=== PATIENT | male | born 1955 | race Caucasian/White ===

== ENCOUNTER 2021-06-23 10:31 | Inpatient (IN) ==
[2021-06-23] MEDS ORDERED: MoRPHine SULFATE 4 MG/ML 1 ML CARP\\VIAL IV STA ×2 (11:59→12:46)
--- NOTE | 2021-06-23 12:05 | Emergency Department Note ---
Impression & Plan Lumbar disc herniation with radiculopathy, Intractable low back pain ED Provider Note Provider: Julio C Beckford MD DATE OF SERVICE: 06/23/2021 CHIEF COMPLAINT: Back pain HISTORY OF PRESENT ILLNESS: Patient is a 66-year-old gentleman presenting today complaining of severe intractable back pain. Patient states has been using several tablets of oxycodone regularly for back pain over the past week without improvement. States the pain really started the beginning of May. Has a distant history 1980 of back surgery. Denies recent trauma or falls. Reports the pain has been worsening and is now experiencing numbness in his right leg. States he was seen for this initially at [facility] and had x-rays and MRIs. The MRI reportedly showed significant disc bulge posteriorly at L3 level. States has had a little bit of constipation but denies urinary issue. States he is still able to feel gross touch in his right leg. Pain radiates from the back down to the right leg and knee with some paresthesia here. States today he almost fell and the pain was so severe that he could not get around. His daughter states she had a little of the back to the car to bring him here. Stat es that he has follow-up with a back doctor initially scheduled for a couple weeks from now that had to be canceled and is in the process of being rescheduled. Patient states the pain is too severe for this. Patient states he is otherwise healthy and denies abdominal pain. Denies nausea or vomiting. Patient states he is on a baby aspirin. Patient denies any inguinal or saddle anesthesia. REVIEW OF SYSTEMS: A total of 10 review of systems was obtained and negative except as stated above in the HPI. PAST MEDICAL HISTORY: As noted above MEDICATIONS: Reviewed home medication list includes baby aspirin SOCIAL HISTORY: Recently retired, lives at home with PHYSICAL EXAM: GENERAL: alert and oriented laying on the stretcher appears mildly uncomfortable. Head: normocephalic and atraumatic EYES: No injection, discharge or icterus NECK: Trachea midline. ENT: Mucous membranes pink and moist. LUNGS: Airway patent. No retractions or tachypnea HEART: Regular rate and rhythm. ABDOMEN: Soft and non-tender, without guarding or rebound. BACK: No midline tenderness. No bilateral flank tenderness. SKIN: Acyanotic, warm, dry, without rashes EXTREMITIES: Without swelling, tenderness or deformity with 1+ right DP pulse. Pain worse with certain movements of the right hip and leg. NEUROLOGICAL: No aphasia. No facial droop or slurred speech. Normal strength and tone in the extremities. Feels gross touch in the right lower leg but some diminished sensation here. EK bpm sinus bradycardia. No PVC or PAC. No acute ST segment elevation depression. QTC 451. Left axis noted. CONTINUOUS CARDIAC MONITORING: was ordered and showed a heart rate of 50s to 60s bpm in normal sinus rhythm to sinus bradycardia PDMP was checked without noted issue. Patient's laboratory studies and imaging reviewed. Differential includes Musculoskeletal, disc herniation, fracture, metastatic d isease, cord compression, discitis, sciatica, cauda equina, infection, aortic disease, renal colic, gastrointestinal, as well as other pathologies. IMPRESSION/MEDICAL DECISION MAKING: Patient recent evaluation at [facility] prakash Guevara with MRI. Has images printed as well as disc of this. This was uploaded to our radiology. Evidence of some obvious disc bulging. Having sciatic symptoms with some numbness in the right leg consistent with lumbar radiculopathy. Appears to have good vascular flow in the right leg doubt ischemic limb. Doubt acute cauda equina given lack of significant urinary symptoms or true motor weakness. No significant trauma reported and basic x-rays obtained here. Doubt this is infectious in nature. Blood work is reassuring and I doubt another acute intra-abdominal process given his benign abdominal exam otherwise at this time. Treated with IV medications including morphine and dexamethasone with minimal improvement. Given his intractable pain patient likely require surgical intervention. Patient is almost fallen today and not a position at home and as such the hospitalist was consulted. Further orthopedic spine consultation can be pursued as an inpatient. DIAGNOSIS: Intractable back pain, lumbar disc herniation with radiculopathy DISPOSITION: Hospitalist will evaluate Patient was agreeable with this plan. 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: No Beliefs That Will Affect Care: None Current Living Situation: Spouse Other Information That Helps Us Care for You: No Feels Safe at Home: Yes Safety Concerns: Feels Safe At This Time Assistive Devices: Walker Allergies Allergies Allergy/AdvReac Type Severity Reaction Status Date / Time diphenhydramine AdvReac Irritable Unverified 06/23/21 13:39 [From Mike] Home Meds Home Medications Medication Instructions Recorded Confirmed aspirin 81 mg capsule 81 mg PO DAILY 06/23/21 06/23/21 multivitamin 1 tab PO DAILY 06/23/21 06/23/21 omeprazole 20 mg capsule,delayed 20 mg PO DAILY 06/23/21 06/23/21 release oxycodone-acetaminophen 5 mg-325 1 tab PO Q6H PRN 06/23/21 06/23/21 mg tablet Results & Data (ED) Vital Signs Vital Signs - 24 hr 06/23/21 10:54 06/23/21 12:20 Temperature 36.5 C Temperature Source Oral Pulse Rate 60 Pulse Rate [Right Finger] 64 Pulse Rhythm [Right Finger] Regular Pulse Strength [Right Finger] Normal Respiratory Rate 18 18 Respiratory Effort / Characteristics Non-Labored Spontaneous Respiratory Depth Normal Respiratory Pattern Regular Blood Pressure 154/80 H Blood Pressure [Right Arm] 150/82 H Blood Pressure Mean 104 Blood Pressure Mean [Right Arm] 104 Blood Pressure Position [Right Arm] Sitting Pulse Oximetry 97 94 Oxygen Delivery Method Room Air Room Air Sepsis Recent Fever Within 48 Hours No Sepsis New/Unexplained Change in Mental Status No Sepsis Action Taken by Nursing No Action Required Laboratory Data Result diagrams: 06/23/21 12:20 06/23/21 12:20 Lab Results 06/23/21 06/23/21 06/23/21 Range/Units 12:20 12:20 12:20 WBC 8.87 (4.8-10.8) K/uL RBC 5.14 (4.7-6.1) M/uL Hgb 16.4 (14.0-18.0) g/dL Hct 48.3 (42-52) % MCV 94.0 (80-100) fL MCH 31.9 (25-34) pg MCHC 34.0 (32-36) g/dL RDW Std Deviation 43.4 (36.4-46.3) fL RDW Coeff of Gerald 12.5 (11.5-14.5) % Plt Count 218 (130-400) K/uL MPV 9.1 (7.4-10.4) fL Immature Gran % (Auto) 0.3 % Neut % (Auto) 69.5 % Lymph % (Auto) 20.3 % Esmeralda % (Auto) 7.9 % Eos % (Auto) 1.5 % Baso % (Auto) 0.5 % Neut # (Auto) 6.17 (1.4-6.5) K/uL Lymph # (Auto) 1.80 (1.2-3.4) K/uL Esmeralda # (Auto) 0.70 H (0.11-0.59) K/uL Eos # (Auto) 0.13 (0-0.5) K/uL Baso # (Auto) 0.04 (0-0.2) K/uL Immature Gran # (Auto) 0.03 H (0.00-0.02) K/uL PT 10.7 (9.0-12.0) Seconds INR 1.1 (0.9-1.1) APTT 26.5 (21.0-31.0) Seconds PTT Ratio 1.0 Sodium 136 (136-145) mmol/L Potassium (3.5-5.1) mmol/L Chloride 105 (98-107) mmol/L Carbon Dioxide 27 (21-32) mmol/L Anion Gap 4.0 (3-11) BUN 22 H (7-18) mg/dl Creatinine 1.04 (0.6-1.4) mg/dl Est Cr Clr Drug Dosing 75.4 ml/min Est GFR ( Amer) 86.9 ml/min Est GFR (Non-Af Amer) 75.0 ml/min BUN/Creatinine Ratio 21.5 H (10-20) Glucose 121 H (70-99) mg/dl Calcium 8.8 (8.5-10.1) mg/dl COVID-19 Eval Order SARS-CoV-2 (PCR) (Negative) 06/23/21 06/23/21 Range/Units 12:20 12:20 WBC (4.8-10.8) K/uL RBC (4.7-6.1) M/uL Hgb (14.0-18.0) g/dL Hct (42-52) % MCV (80-100) fL MCH (25-34) pg MCHC (32-36) g/dL RDW Std Deviation (36.4-46.3) fL RDW Coeff of Gerald (11.5-14.5) % Plt Count (130-400) K/uL MPV (7.4-10.4) fL Immature Gran % (Auto) % Neut % (Auto) % Lymph % (Auto) % Esmeralda % (Auto) % Eos % (Auto) % Baso % (Auto) % Neut # (Auto) (1.4-6.5) K/uL Lymph # (Auto) (1.2-3.4) K/uL Esmeralda # (Auto) (0.11-0.59) K/uL Eos # (Auto) (0-0.5) K/uL Baso # (Auto) (0-0.2) K/uL Immature Gran # (Auto) (0.00-0.02) K/uL PT (9.0-12.0) Seconds INR (0.9-1.1) APTT (21.0-31.0) Seconds PTT Ratio Sodium (136-145) mmol/L Potassium (3.5-5.1) mmol/L Chloride (98-107) mmol/L Carbon Dioxide (21-32) mmol/L Anion Gap (3-11) BUN (7-18) mg/dl Creatinine (0.6-1.4) mg/dl Est Cr Clr Drug Dosing ml/min Est GFR ( Amer) ml/min Est GFR (Non-Af Amer) ml/min BUN/Creatinine Ratio (10-20) Glucose (70-99) mg/dl Calcium (8.5-10.1) mg/dl COVID-19 Eval Order Covid19 at [facility] SARS-CoV-2 (PCR) NEGATIVE (Negative) Administered Medications Acetaminophen (Acetaminophen 325 Mg Tab) 650 mg PO Q6H GIULIANA Stop: 07/23/21 17:59 Last Admin: 06/23/21 17:46 Dose: 650 mg Documented by: [id number] Discontinued Medications Dexamethasone (Dexamethasone Sod Inj 4 Mg/Ml Vial) Confirm Administered Dose 8 mg .ROUTE .STK-MED ONE Stop: 06/23/21 12:57 Last Admin: 06/23/21 12:58 Dose: 6 mg Documented by: [id number] Dexamethasone 6 mg/ Syringe 1.5 mls @ 1 mls/min IV ONE ONE Stop: 06/23/21 12:47 Last Admin: 06/23/21 12:59 Dose: Not Given Documented by: [id number] Morphine Sulfate (Morphine Sulfate 4 Mg/Ml 1 Ml Carp\Vial) 4 mg IV NOW STA Stop: 06/23/21 12:00 Last Admin: 06/23/21 12:16 Dose: 4 mg Documented by: [id number] Morphine Sulfate (Morphine Sulfate 4 Mg/Ml 1 Ml Carp\Vial) 4 mg IV NOW STA Stop: 06/23/21 12:47 Last Admin: 06/23/21 12:59 Dose: 4 mg Documented by: [id number] Imaging Data Radiologist's Impression: Chest X-Ray 06/23/21 11:59 SINGLE VIEW CHEST CLINICAL HISTORY: Low back pain. FINDINGS: An AP, portable, supine chest radiograph is obtained. No prior studies are available for comparison at the time of dictation. The examination is degraded by portable technique and apical lordotic positioning. The heart is top normal for projection. The pulmonary vasculature is noncongested. The lungs and pleural spaces are clear. No pneumothorax is seen. The bony thorax is grossly intact. IMPRESSION: No active disease in the chest. ACT 112: Negative or not required by law. Electronically signed by: Catarino Mckeon M.D. 06/23/2021 1:37 PM Lumbar Spine X-Ray 06/23/21 11:59 XR lumbar spine 2-3V HISTORY: 66 years-old Male pain . Acute low back pain without reported trauma COMPARISON: MRI lumbar spine 06/10/2021 TECHNIQUE: 3 views of the lumbar spine FINDINGS: Mild to moderate multilevel intervertebral disc space narrowing. Moderate L4-L5 disc space narrowing with vacuum disc phenomenon. Moderate spondylitic spurring and facet arthrosis. No acute fracture, subluxation or endplate erosion. Unremarkable soft tissues. IMPRESSION: 1. No acute fracture or subluxation. 2. Multilevel degenerative changes of the lumbar spine redemonstrated, better characterized on the recent lumbar spine MRI from 06/10/2021. ACT 112: Negative or not required by law. The above report was generated using voice recognition software. It may contain grammatical, syntax or spelling errors. Electronically signed by: Gabino Judge M.D. 06/23/2021 1:37 PM Discharge Plan Visit Data Chief Complaint: Back Injury/Pain Stated Complaint: BACK PAIN ED Provider: Julio C Beckford Discharge Problem: Lumbar disc herniation with radiculopathy, Intractable low back pain Patient Disposition: Admitted As Inpatient Discharge Instructions Interventions: ED Discharge Assessment Last Done: 06/23/21 16:13
[2021-06-23 12:36] LABS: Basophils # (auto) 0.04 K/uL (0-0.2); Basophils % (auto) 0.5 %; Eosinophils # (auto) 0.13 K/uL (0-0.5); Eosinophils % (auto) 1.5 %; Hematocrit (blood only) 48.3 % (42-52); Hemoglobin 16.4 g/dL (14.0-18.0); Immature Granulocytes # (auto) 0.03 K/uL (0.00-0.02); Immature Granulocytes % (auto) 0.3 %; Lymphocytes % (auto) 20.3 %; Mean Corpuscular Hemoglobin 31.9 pg (25-34); Mean Platelet Volume 9.1 fL (7.4-10.4); Monocytes % (auto) 7.9 %; Neutrophils # (auto) 6.17 K/uL (1.4-6.5); Neutrophils % (auto) 69.5 %; Platelet Count 218 K/uL (130-400); RDW Coefficient of Variation 12.5 % (11.5-14.5); RDW Standard Deviation 43.4 fL (36.4-46.3); Red Blood Count 5.14 M/uL (4.7-6.1); White Blood Count 8.87 K/uL (4.8-10.8)
[2021-06-23] MEDS ORDERED: dexAMETHasone 6 MG in SYRINGE 0 ML IV ONE (12:46)
[2021-06-23 12:50] LABS: INR 1.1 (0.9-1.1); Partial Thromboplastin Time 26.5 Seconds (21.0-31.0); Prothrombin Time 10.7 Seconds (9.0-12.0)
[2021-06-23] MEDS ORDERED: DEXAMETHASONE SOD INJ 4 MG/ML VIAL ONE (12:56)
[2021-06-23 13:06] LABS: BUN Creatinine Ratio 21.5 (10-20); Calcium 8.8 mg/dl (8.5-10.1); Creatinine Clr Calc Pharmacy 75.4 ml/min; Est GFR (African American) 86.9 ml/min
--- NOTE | 2021-06-23 13:38 | XRay Report ---
SINGLE VIEW CHEST CLINICAL HISTORY: Low back pain. FINDINGS: An AP, portable, supine chest radiograph is obtained. No prior studies are available for co mparison at the time of dictation. The examination is degraded by portable technique and apical lordo tic positioning. The heart is top normal for projection. The pulmonary vasculature is noncongested. T he lungs and pleural spaces are clear. No pneumothorax is seen. The bony thorax is grossly intact. IMPRESSION: No active disease in the chest. ACT 112: Negative or not required by law. Electronically signed by: Catarino Mckeon M.D. 06/23/2021 1:37 PM
--- NOTE | 2021-06-23 13:38 | XRay Report ---
XR lumbar spine 2-3V HISTORY: 66 years-old Male pain . Acute low back pain without reported trauma COMPARISON: MRI lumbar spine 06/10/2021 TECHNIQUE: 3 views of the lumbar spine FINDINGS: Mild to moderate multilevel intervertebral disc space narrowing. Moderate L4-L5 disc space narrowing with vacuum disc phenomenon. Moderate spondylitic spurring and facet arthrosis. No acute fracture, hoffmann bluxation or endplate erosion. Unremarkable soft tissues. IMPRESSION: 1. No acute fracture or subluxation. 2. Multilevel degenerative changes of the lumbar spine redemonstrated, better characterized on the re cent lumbar spine MRI from 06/10/2021. ACT 112: Negative or not required by law. The above report was generated using voice recognition software. It may contain grammatical, syntax o r spelling errors. Electronically signed by: Gabino Judge M.D. 06/23/2021 1:37 PM
--- NOTE | 2021-06-23 15:11 | Orthopedic Consultation ---
Date of Consultation June 23, 2021 Assessment & Plan (1) Lumbar disc herniation with radiculopathy: Assessment lumbar disc herniation L3-L4 with cephalad migration and radiculopathy. Plan lungs jessica with this patient and his daughter regarding his MRI findings and clinical presentation. This time he is marked clinical status progressive neuro deficit is in severe discomfort and recommending urgent lumbar decompression L3-L4. This may include possible fusion depending on the amount of facet required to adequately decompress the canal. This would however allow me to address the massive disc herniation and hopefully improve his pain and neuro deficit with time. Risk benefits pros cons alternatives were outlined in detail. Risk include but not limited to anesthesia blindness stroke paralysis nerve damage blood loss requiring transfusion infection requiring reoperation events with a marked improvement of his leg pain. At this time will make him n.p.o. after midnight and plan for surgery tomorrow. History of Present Illness Reason for Consultation: Back and right leg pain with weakness History of Present Illness This is a 66-year-old male has had a marked decline in status over the past several weeks. He states he began his lumbosacral back pain but is now begun rating into the right buttock anterior lateral thigh to the right knee. He is noted progressive quad deficit he is almost stumbling down steps. Pain does awaken him from sleep. Found extensive course of nonoperative care including medications. Allergies Allergy/AdvReac Type Severity Reaction Status Date / Time diphenhydramine AdvReac Irritable Unverified 06/23/21 13:39 [From [facility]] Home Medications Medication Instructions Recorded Confirmed Type aspirin 81 mg capsule 81 mg PO DAILY 06/23/21 06/23/21 History multivitamin 1 tab PO DAILY 06/23/21 06/23/21 History oxycodone-acetaminophen 5 mg-325 1 tab PO Q6H PRN 06/23/21 06/23/21 History mg tablet Patient History Social History (System 12/15/18 @ 13:52 by Bea Ferguson) Smoking Status: Never smoker Feels Safe at Home: Yes Physical Exam Physical Exam: On exam he is in obvious distress. He prefers to lie still in bed. He exhibits tension signs with straight leg raising on the right negative on the left. He has marked deficit sensation along the right anterior thigh compared to left. Is a plus out of 5 bilateral plantar flexion dorsiflexion extensor hallucis longus with a 3+/5 right quadriceps compared to 5 5 on the left. He has a negative logroll. No abnormal skin markings to the lumbar spine well-healed previous incision. Results & Data ([facility]) Vital Signs (Past 12 Hours) Vital Signs Temp Pulse Pulse Resp BP BP Pulse Ox 06/23/21 12:20 64 18 150/82 H 94 06/23/21 10:54 36.5 C 60 18 154/80 H 97
--- NOTE | 2021-06-23 16:23 | Anesthesiology Consultation ---
Date of Service June 23, 2021 Assessment & Plan (1) Encounter for pre-operative examination: Chart Review Chart Review: Acceptable Risk for Surgery and Patient NOT seen in Pre Admission Testing Consults Requested none History Surgery Operation Date: 06/24/21 11:55 Proposed Procedures p L3-L4 Decompression Possible Fusion - Romario Grier DO Height/Weight Height: 5 ft 11 in Weight: 84.8 kg Allergies Allergy/AdvReac Type Severity Reaction Status Date / Time diphenhydramine AdvReac Irritable Unverified 06/23/21 13:39 [From Benadryl] Medications Home Medications Medication Instructions Recorded Confirmed Last Taken aspirin 81 mg capsule 81 mg PO DAILY 06/23/21 06/23/21 Unknown multivitamin 1 tab PO DAILY 06/23/21 06/23/21 Unknown omeprazole 20 mg capsule,delayed 20 mg PO DAILY 06/23/21 06/23/21 Unknown release oxycodone-acetaminophen 5 mg-325 1 tab PO Q6H PRN 06/23/21 06/23/21 06/23/21 mg tablet Past Medical History Medical History Biceps tendon rupture s/p repair Renal calculi Past Surgical History Surgical History H/O inguinal hernia repair H/O umbilical hernia repair History of back surgery 1980s Social History Smoking Status: Never smoker Physical Exam Vital Signs Last Vital Signs Temp 36.5 C 06/23/21 10:54 Pulse 64 06/23/21 12:20 Resp 18 06/23/21 12:20 BP 150/82 H 06/23/21 12:20 Pulse Ox 94 06/23/21 12:20 Testing Laboratory Results 06/23/21 12:20 06/23/21 12:20 PT 10.7 Seconds (9.0-12.0) 06/23/21 12:20 INR 1.1 (0.9-1.1) 06/23/21 12:20 APTT 26.5 Seconds (21.0-31.0) 06/23/21 12:20 Electrocardiogram Date: 06/23/21 Findings: + SB @ (58) left axis deviation Chest X-Ray Date: 06/23/21 Findings: + NAD
[2021-06-23] MEDS ORDERED: oxyCODONE HCL IR 5 MG TAB (IMMEDIATE RELEASE) PO PRN (16:30)
[2021-06-23] MEDS ORDERED: MoRPHine SULFATE 4 MG/ML 1 ML CARP\\VIAL IV PRN (16:30)
[2021-06-23] MEDS: ACETAMINOPHEN 325 MG TAB PO SCH ×2 (17:46→23:23)
--- NOTE | 2021-06-23 18:44 | History & Physical Report ---
Date of Service June 23, 2021 Assessment & Plan (1) Lumbar disc herniation with radiculopathy: Plan: -[facility] -Patient presenting from home with reports of worsening and intractable low back pain with radiation into the right leg over the past few weeks. MRI at outside facility showed lumbar disc herniation L3-L4. -Spine Ortho consult, Dr. Grier planning on lumbar decompression tomorrow. -EKG and CXR unremarkable. Patient denies cardiopulmonary complaints. Patient describes a cardiac event approximately 25 years ago for which he had a cardiac cath that he reports was normal. Patient reports he was on Coumadin for 1 year. I reached out to patient's cardiology office however records or details of this event are not available. -Given patient's lack of cardiopulmonary symptoms and unremarkable EKG and CXR, patient will be considered an acceptable risk to proceed to surgery tomorrow. -Pain control with scheduled Tylenol and as needed oxycodone and morphine -Postop management as per Ortho (2) DVT prophylaxis: Plan: -SCDs due to planned procedure tomorrow Admission and Anticipated Discharge Date Admission Date: June 23, 2021 History of Present Illness Chief Complaint: Low back pain Primary Care Provider: Yoselyn De Paz MD 66-year-old male with PMH renal calculi, back surgery in the 1980s, hernia repair x3, and other problems listed below who presents to the ED for evaluation of intractable low back pain. Patient reports worsening low back pain over the past 3 weeks. Pain has now begun to radiate down the patient's right leg to the foot. He has had episodes where his right leg gives out from under him. He reports numbness and tingling to the right leg. He denies any bowel or bladder dysfunction. Patient has been treated as an outpatient with steroids and narcotics without any relief in symptoms. MRI obtained at outside facility demonstrated an L3 disc bulge. Patient denies fevers and chills. No chest pain or shortness of breath. Denies lightheadedness, dizziness, diaphoresis, syncopal events. Reports he has had a poor appetite however no abdominal pain, nausea, vomiting, diarrhea. No urinary symptoms. In the ED, patient is hemodynamically stable and labs are unremarkable. Patient received IV dexamethasone 6 mg IV, morphine 4 mg IV x 2 doses. Allergies Allergy/AdvReac Type Severity Reaction Status Date / Time diphenhydramine AdvReac Irritable Unverified 06/23/21 13:39 [From [facility]] Home Medications Medication Instructions Recorded Confirmed Type aspirin 81 mg capsule 81 mg PO DAILY 06/23/21 06/23/21 History multivitamin 1 tab PO DAILY 06/23/21 06/23/21 History omeprazole 20 mg capsule,delayed 20 mg PO DAILY 06/23/21 06/23/21 History release oxycodone-acetaminophen 5 mg-325 1 tab PO Q6H PRN 06/23/21 06/23/21 History mg tablet Past Med/Surg History Medical History Biceps tendon rupture s/p repair Renal calculi Surgical History H/O inguinal hernia repair H/O umbilical hernia repair History of back surgery 1980s Family History (Updated 06/23/21 @ 18:38 by SHANE Tolliver) Father Heart disease Social History (Updated 06/23/21 @ 18:38 by SHANE Tolliver) Smoking Status: Never smoker Hx Alcohol Use: No Hx Substance Use: No Preferred Language: Andorran Communication Ability: Effective Copy Machine Operator Required: No Beliefs That Will Affect Care: None Current Living Situation: Spouse Other Information That Helps Us Care for You: No Feels Safe at Home: Yes Safety Concerns: Feels Safe At This Time Assistive Devices: None Review of Systems Review of Systems: ROS per HPI, all other systems reviewed and negative Physical Exam Constitutional: WD/WN, vitals as above Eyes: PERRL, conjunctivae normal, anicteric sclerae ENMT: external ear and nose normal, oropharynx normal Respiratory: normal respiratory effort, lungs clear to auscultation Cardiovascular: Rate/Rhythm: regular rate and regular rhythm Vessels: normal peripheral pulses Extremities: no edema Gastrointestinal (Abdomen): normal bowel sounds, soft, nontender, no hepatosplenomegaly Musculoskeletal: no cyanosis or clubbing, extremities motor strength 5/5 Spine: + straight leg raise positive Decrease sensation RLE Skin: no rashes, warm and dry Neurologic: PERRL, EOMI, accommodation nl, no face palsy, no dysarthria Psychiatric: A+Ox3, euthymic affect Results & Data Results & Data ([place]) Vital Signs (Past 12 Hours) Vital Signs Temp Pulse Pulse Resp BP BP Pulse Ox 06/23/21 16:31 36.5 C 63 18 152/84 H 95 06/23/21 12:20 64 18 150/82 H 94 06/23/21 10:54 36.5 C 60 18 154/80 H 97 Laboratory Results Short CBC 06/23/21 Range/Units 12:20 WBC 8.87 (4.8-10.8) K/uL Hgb 16.4 (14.0-18.0) g/dL Hct 48.3 (42-52) % Plt Count 218 (130-400) K/uL BMP 06/23/21 12:20 Sodium 136 Potassium Chloride 105 Carbon Dioxide 27 BUN 22 H Creatinine 1.04 Glucose 121 H Calcium 8.8 Diagnostic Findings Chest X-Ray 06/23/21 11:59 SINGLE VIEW CHEST CLINICAL HISTORY: Low back pain. FINDINGS: An AP, portable, supine chest radiograph is obtained. No prior studies are available for comparison at the time of dictation. The examination is degraded by portable technique and apical lordotic positioning. The heart is top normal for projection. The pulmonary vasculature is noncongested. The lungs and pleural spaces are clear. No pneumothorax is seen. The bony thorax is grossly intact. IMPRESSION: No active disease in the chest. ACT 112: Negative or not required by law. Electronically signed by: Catarino Mckeon M.D. 06/23/2021 1:37 PM Lumbar Spine X-Ray 06/23/21 11:59 XR lumbar spine 2-3V HISTORY: 66 years-old Male pain . Acute low back pain without reported trauma COMPARISON: MRI lumbar spine 06/10/2021 TECHNIQUE: 3 views of the lumbar spine FINDINGS: Mild to moderate multilevel intervertebral disc space narrowing. Moderate L4-L5 disc space narrowing with vacuum disc phenomenon. Moderate spondylitic spurring and facet arthrosis. No acute fracture, subluxation or endplate erosion. Unremarkable soft tissues. IMPRESSION: 1. No acute fracture or subluxation. 2. Multilevel degenerative changes of the lumbar spine redemonstrated, better characterized on the recent lumbar spine MRI from 06/10/2021. ACT 112: Negative or not required by law. The above report was generated using voice recognition software. It may contain grammatical, syntax or spelling errors. Electronically signed by: Gabino Judge M.D. 06/23/2021 1:37 PM Code Status & VTE Plan VTE Prophylaxis Plan VTE Prophylaxis will be ordered: Yes Supervising Physician Co-Signing Physician Notes Patient seen and examined by me, care coordinated with SHANE Tolliver, please refer to her note above for further detail. Patient is currently lying in bed, in no acute distress. He is alert oriented answering questions appropriately. Lungs are clear to auscultation bilaterally without any wheezing, rhonchi or crackles. Heart sounds regular. Abdomen soft nontender nondistended. Patient is able to move extremities. No sensory loss noted. Denies any urinary or bowel incontinence. No fevers chills. Right lower extremity more difficult to move,/pain with movement. Patient was seen by orthopedic surgeon, plan for OR tomorrow for L3-L4 decompression/fusion. Patient is in agreement with the plan. Aisha Degroot MD
[2021-06-24] MEDS: ACETAMINOPHEN 325 MG TAB PO SCH ×4 (05:46→23:09)
--- NOTE | 2021-06-24 06:16 | Electrocardiogram Report ---
Test Reason : Blood Pressure : / mmHG Vent. Rate : 058 BPM Atrial Rate : 058 BPM P-R Int : 190 ms QRS Dur : 104 ms QT Int : 460 ms P-R-T Axes : 020 -35 036 degrees QTc Int : 451 ms Sinus bradycardia Left axis deviation Abnormal ECG No previous ECGs available Confirmed by Jimi Meza ([id number]) on 06/24/2021 6:16:05 AM Referred By: REFERRED SELF Confirmed By:Jimi Meza
[2021-06-24 06:21] LABS: Mean Corpuscular Hemoglobin 31.8 pg (25-34); Mean Corpuscular Volume 93.4 fL (80-100); Mean Platelet Volume 9.2 fL (7.4-10.4); Platelet Count 229 K/uL (130-400); RDW Coefficient of Variation 12.4 % (11.5-14.5); RDW Standard Deviation 42.1 fL (36.4-46.3); Red Blood Count 5.03 M/uL (4.7-6.1); White Blood Count 13.88 K/uL (4.8-10.8)
[2021-06-24 07:05] LABS: BUN Creatinine Ratio 24.4 (10-20); Calcium 8.9 mg/dl (8.5-10.1); Creatinine Clr Calc Pharmacy 70.4 ml/min; Est GFR (Non-African American) 71.6 ml/min; Potassium 4.1 mmol/L (3.5-5.1)
[2021-06-24] MEDS: PANTOprazole 40 MG TAB PO SCH (07:32)
--- NOTE | 2021-06-24 07:35 | History & Physical Bridge Note ---
Date of Service June 24, 2021 History & Physical Bridge Note I have examined the patient, reviewed the History & Physical and in the interval since the performance of the History & Physical I have noted the following changes of clinical significance: no changes noted Patient continues to demonstrate significant lumbar radiculopathy affecting the right lower extremity with progressive weakness to the right quadriceps. I am recommending emergent decompression L3-L4 to avoid permanent neurologic deficit.
[2021-06-24] MEDS ORDERED: ePHEDrine sulfate 50 MG/ML AMP IV PRN (11:23)
[2021-06-24] MEDS ORDERED: HYDROmorphone INJ 1 MG/ML SYRINGE IV PRN ×2 (11:23→15:47)
[2021-06-24] MEDS ORDERED: ONDANSETRON INJ 2 MG/ML 2 ML VIAL IV PRN ×2 (11:23→15:47)
[2021-06-24] MEDS ORDERED: ATROPINE SULFATE 0.1 MG/ML 10ML SYR IV PRN (11:23)
[2021-06-24] MEDS ORDERED: HYDROmorphone INJ 2 MG/ML SYR/VIAL ONE (11:33)
[2021-06-24] MEDS ORDERED: MIDAZOLAM HCL 1 MG/ML 2ML VIAL ONE (11:33)
[2021-06-24] MEDS ORDERED: ceFAZolin 2000MG 2,000 MG/15 ML SYR IV ONE (12:00)
[2021-06-24] MEDS ORDERED: EPINEPHrine INJ 1 MG/ML AMP ONE (12:17)
[2021-06-24] MEDS ORDERED: BUPIVACAINE 0.5 % 5 MG/1 ML MPF 30ML VIAL ONE (12:17)
[2021-06-24] MEDS ORDERED: SUGAMMADEX SODIUM 200 MG/2 ML VIAL IV ONE (12:24)
[2021-06-24] MEDS ORDERED: LIDOCAINE 2% 2 ML VIAL/AMP(20MG/ML) INFIL ONE (13:04)
[2021-06-24] MEDS ORDERED: ONDANSETRON INJ 2 MG/ML 2 ML VIAL ONE (13:04)
[2021-06-24] MEDS ORDERED: DEXAMETHASONE SOD INJ 4 MG/ML VIAL ONE (13:04)
[2021-06-24] MEDS ORDERED: ROCURONIUM BROMIDE 10 MG/ML 5 ML VIAL IV ONE (13:04)
[2021-06-24] MEDS ORDERED: PROPOFOL IV EMULSION 10 MG/ML 20 ML VIAL IV ONE (13:04)
[2021-06-24] MEDS ORDERED: FLOSEAL HEMOSTATIC MATRIX 10ML TOP ONE (13:09)
--- NOTE | 2021-06-24 13:54 | Operative Report ---
Post Operative Report Pre & Post Diagnosis Operation Date: 06/24/21 11:55 Pre-Op Diagnosis: Lumbar disc herniation with radiculopathy Post-Op Diagnosis: Lumbar disc herniation with radiculopathy I identified the patient and participated in the time-out.: Yes Procedure Operation Date: 06/24/21 11:55 Actual Procedures Lumbar decompression L3-4 L4-5 with medial facetectomies and removal of herniated free fragments. Surgeon Romario Grier, [employer] Artistic Director Rashawn Holm Estimated Blood Loss 75 Findings Consistent with Post-Op Diagnosis Specimens None Indications This is a 66-year-old male who presents with severe radiculopathy and leg weakness and is here for urgent decompression and removal of herniated fragment. Description of Procedure Patient was met with identified informed consent obtained. Patient was then taken to the operative suite underwent intubation placed in a prone position the Krystian table top Guilherme frame. All bony prominences well-padded eyes inspected to ensure no external pressure placed upon the. This point the lumbar spine was prepped and draped in a sterile fashion. Sharp dissection with the assistance of Bovie cartilage from down to and exposing the interlaminar space at L3-L4 L4- L5. Then performed a partial laminectomy of L4 and L3 to adequately decompress the canal and safely retrieve the mass amounts of disc material that migrated along the right side of the canal began at L3-L4 and migrating cephalad. After removal fragments the incision was copiously irrigated 10 round KARIN drain inserted. Was then closed with 1 Vicryl fascia 2-0 Vicryl subcutaneously and 4 Monocryl for final skin closure. Steri-Strip sterile dressing placed. Patient continued back in stable condition. Please note Rashawn Holm was present at the entire procedure and while the patient positioning complex portions of the surgery and fascial closure. I attest to the content of the Intraoperative Record and any orders documented therein. Any exceptions are noted below.
--- NOTE | 2021-06-24 14:36 | Fluoroscopy Report ---
FL spine 1V any level CLINICAL HISTORY: L3-4 LAMINECTOMY TECHNIQUE: 1 views were obtained with the C-arm in the OR with the above procedure. Total fluoroscopy time was 9.9 seconds. Total skin dose was 4.74 mGy. Comparison: None available at the time of this dictation. FINDINGS/IMPRESSION: Single intraoperative image was obtained of L3-L4 laminectomy. Please correlate with intraoperative fluoroscopy and operative report. ACT 112: Negative or not required by law. Electronically signed by: Ricky Chester M.D. 06/24/2021 2:35 PM
[2021-06-24] MEDS: fentaNYL citrate 100 MCG/2 ML VIAL IV PRN ×4 (14:47→15:02)
--- NOTE | 2021-06-24 15:02 | Anesthesiology Progress Note ---
Date of Service June 24, 2021 Anesthesia Post Procedure Vital Signs Vital Signs: Temp Pulse Pulse Resp BP Pulse Ox 06/24/21 14:50 73 11 L 133/80 94 06/24/21 14:40 76 15 152/84 H 96 06/24/21 14:30 77 7 L 153/92 H 98 06/24/21 14:20 75 11 L 154/82 H 98 06/24/21 14:14 36.2 C L 72 12 169/89 H 98 06/24/21 11:41 36.7 C 60 17 155/73 H 93 06/24/21 06:59 36.6 C 68 18 151/77 H 96 06/23/21 22:17 36.7 C 75 16 127/70 91 06/23/21 16:31 36.5 C 63 18 152/84 H 95 Pain Intensity Bilateral Lower Back: Pain Intensity: 6 Transfer of Care Handoff Completed per policy Notes Mental Status: alert / awake / arousable and participated in evaluation Patient Amnestic to Procedure: Yes Nausea / Vomiting: adequately controlled Pain: adequately controlled Airway Patency, RR, SpO2: stable & adequate BP & HR: stable & adequate Hydration State: stable & adequate Anesthetic Complications: no major complications apparent and Pt Satisfied with anesthetic care
[2021-06-24] MEDS ORDERED: oxyCODONE HCL IR 5 MG TAB (IMMEDIATE RELEASE) PO PRN (15:47)
[2021-06-24] MEDS ORDERED: LORazepam 0.5 MG/1 ML VIAL IV PRN (15:47)
[2021-06-24] MEDS ORDERED: NALOXONE HCL 0.4 MG/1 ML VIAL/CARP IV PRN (15:47)
[2021-06-24] MEDS ORDERED: traMADol HCL 50 MG TABLET PO PRN (15:47)
[2021-06-24] MEDS ORDERED: LACTATED RINGER'S 1,000 ML IV SCH (15:47)
[2021-06-24] MEDS ORDERED: ALUMINUM/MAGNESIUM SUSP 30 ML UDC PO PRN (15:47)
[2021-06-24] MEDS ORDERED: HYDROmorphone INJ 0.5 MG/0.5 ML SYR IV PRN (15:47)
[2021-06-24] MEDS ORDERED: PROMETHAZINE HCL 12.5 MG in SODIUM CHLORIDE 0.9% 50 ML IV PRN (15:47)
[2021-06-24] MEDS ORDERED: bisacodyL 10 MG SUPP PR PRN (15:47)
[2021-06-24] MEDS ORDERED: DO NOT ADMINISTER PNEUMOCOCCAL VACCINE PRN (15:47)
[2021-06-24] MEDS ORDERED: SOD PHOSPHATE/SOD BIPHOSPHATE ENEMA 132 ML BTL PR PRN (15:47)
[2021-06-24] MEDS ORDERED: METOCLOPRAMIDE HCL INJ 5 MG/ML 2 ML VIAL IV PRN (15:47)
[2021-06-24] MEDS ORDERED: hydrOXYzine HCl 25 MG TAB PO PRN (15:47)
[2021-06-24] MEDS ORDERED: MAGNESIUM HYDROXIDE SUSP 30 ML UDC PO PRN (15:47)
[2021-06-24] MEDS ORDERED: FAMOTIDINE 20 MG TAB PO PRN (15:47)
[2021-06-24] MEDS ORDERED: ACETAMINOPHEN 500 MG TAB PO PRN (15:47)
[2021-06-24] MEDS ORDERED: DO NOT ADMINISTER FLU VACCINE PRN (15:47)
[2021-06-24] MEDS ORDERED: diphenhydrAMINE Capsule 25 MG CAP PO PRN (15:47)
[2021-06-24] MEDS ORDERED: LORazepam 0.5 MG TAB PO PRN (15:47)
[2021-06-24] MEDS ORDERED: ACETAMINOPHEN 1,000 MG/100 ML VIAL IV PRN (15:47)
[2021-06-24] MEDS ORDERED: ONDANSETRON 4 MG OD TAB PO PRN (15:47)
--- NOTE | 2021-06-24 17:56 | Hospitalist Progress Note ---
Date of Service June 24, 2021 Assessment & Plan (1) Lumbar disc herniation with radiculopathy: Plan: -Admitted to [facility] -Patient presenting from home with reports of worsening and intractable low back pain with radiation into the right leg over the past few weeks. MRI at outside facility showed lumbar disc herniation L3-L4. -Spine Ortho consult, Dr. Grier - now pt is s/p lumbar decompression (06/24/2021) - pt tolerated procedure well pre-op eval -EKG and CXR unremarkable. Patient denies cardiopulmonary complaints. Patient describes a cardiac event approximately 25 years ago for which he had a cardiac cath that he reports was normal. Patient reports he was on Coumadin for 1 year. I reached out to patient's cardiology office however records or details of this event are not available. -Given patient's lack of cardiopulmonary symptoms and unremarkable EKG and CXR, patient considered an acceptable risk to proceed to surgery -Pain control with scheduled Tylenol and as needed oxycodone and morphine -Postop management as per Ortho (2) DVT prophylaxis: Plan: -SCDs / per ortho Admission and Anticipated Discharge Date Admission Date: June 24, 2021 Subjective Patient seen in follow-up of back pain secondary to lumbar disc herniation Currently status post decompression, fusion L3-L4 Patient is currently lying in bed in no acute distress He is awake alert oriented, answering questions appropriately, patient's is at the bedside Denies any chest pain, shortness of breath, abdominal pain, nausea or vomiting He is able to move extremities, and denies any sensory loss currently Review of Systems Review of Systems: All systems reviewed & are unremarkable except as noted in Subjective Physical Exam Physical Exam: Constitutional:L WD/WN, M in NAD Eyes: PERRL, EOMI, conju nctivae normal, an icteric sclerae ENMT: external ear and n ose normal, oropha rynx normal Respiratory: normal respiratory effort, lungs meri ar to auscultation Cardiovascular:L Rate/Rhythm: regul ar rate and regula r rhythm Vessels: normal peripheral pulses Extremiti es: no edema Gastrointestinal ( Abdomen): normal bowel sound s, soft, nontender Musculoskeletal: moves extremities, no significant se nsory deficits not ed Skin: no rashes, warm an d dry Neurologic: PERRL, EOMI, no fa ce palsy, no dysar thria, moves extre mities Psychiatric: A+Ox3, euthymic af fect Results & Data Results & Data ([facility]) Vital Signs (Past 12 Hours) Vital Signs Temp Pulse Pulse Resp BP Pulse Ox 06/24/21 17:43 62 18 149/88 H 95 06/24/21 16:49 68 18 119/74 95 06/24/21 16:25 67 18 128/73 94 06/24/21 15:50 36.8 C 78 18 128/75 92 06/24/21 15:30 36.6 C 72 10 L 110/78 94 06/24/21 15:20 36.6 C 71 10 L 134/75 95 06/24/21 15:10 36.6 C 76 14 138/81 95 06/24/21 15:00 36.6 C 73 13 127/82 96 06/24/21 14:50 73 11 L 133/80 94 06/24/21 14:40 76 15 152/84 H 96 06/24/21 14:30 77 7 L 153/92 H 98 06/24/21 14:20 75 11 L 154/82 H 98 06/24/21 14:14 36.2 C L 72 12 169/89 H 98 06/24/21 11:41 36.7 C 60 17 155/73 H 93 06/24/21 06:59 36.6 C 68 18 151/77 H 96 Laboratory Results 06/24/21 06/24/21 Range/Units 05:41 05:41 WBC 13.88 H (4.8-10.8) K/uL RBC 5.03 (4.7-6.1) M/uL Hgb 16.0 (14.0-18.0) g/dL Hct 47.0 (42-52) % MCV 93.4 (80-100) fL MCH 31.8 (25-34) pg MCHC 34.0 (32-36) g/dL RDW Std Deviation 42.1 (36.4-46.3) fL RDW Coeff of Gerald 12.4 (11.5-14.5) % Plt Count 229 (130-400) K/uL MPV 9.2 (7.4-10.4) fL Sodium 137 (136-145) mmol/L Potassium 4.1 (3.5-5.1) mmol/L Chloride 104 (98-107) mmol/L Carbon Dioxide 25 (21-32) mmol/L Anion Gap 8.0 (3-11) BUN 26 H (7-18) mg/dl Creatinine 1.08 (0.6-1.4) mg/dl Est Cr Clr Drug Dosing 70.4 ml/min Est GFR ( Amer) 83.0 ml/min Est GFR (Non-Af Amer) 71.6 ml/min BUN/Creatinine Ratio 24.4 H (10-20) Glucose 134 H (70-99) mg/dl Calcium 8.9 (8.5-10.1) mg/dl Medications Administered Current Inpatient Medications Acetaminophen (Acetaminophen 325 Mg Tab) 650 mg PO Q6H GIULIANA Stop: 07/23/21 17:59 Last Admin: 06/24/21 17:45 Dose: 650 mg Documented by: Acetaminophen (Acetaminophen 500 Mg Tab) 1,000 mg PO Q8H PRN PRN Reason: MILD Pain Scale 1,2,3 & Pre PT Stop: 07/24/21 15:46 Al Hydrox/Mg Hydrox/Simethicone (Aluminum/Magnesium Susp 30 Ml Udc) 30 ml PO Q6H PRN PRN Reason: Dyspepsia Stop: 07/24/21 15:46 Atropine Sulfate (Atropine Sulfate 0.1 Mg/Ml 10ml Syr) 0.5 mg IV Q1M PRN PRN Reason: PACU Use-HR<40 &/or Bradycardi Stop: 06/24/21 19:23 Bisacodyl (Bisacodyl 10 Mg Supp) 10 mg WV DAILY PRN PRN Reason: Constipation Stop: 07/24/21 15:46 Diphenhydramine HCl (Diphenhydramine Capsule 25 Mg Cap) 25 mg PO Q6H PRN PRN Reason: Allergic Rhinitis/Insomnia Stop: 07/24/21 15:46 Ephedrine Sulfate (Ephedrine Sulfate 50 Mg/Ml Amp) 5 mg IV Q5M PRN PRN Reason: PACU Use Only-SBP<90 mmHg Stop: 06/24/21 19:23 Famotidine (Famotidine 20 Mg Tab) 20 mg PO Q12H PRN PRN Reason: Dyspepsia Stop: 07/24/21 15:46 Fentanyl Citrate (Fentanyl Citrate 100 Mcg/2 Ml Vial) 25 mcg IV Q5M PRN PRN Reason: PACU Use Only-Pain Stop: 06/24/21 19:24 Last Admin: 06/24/21 15:02 Dose: 25 mcg Documented by: Hydromorphone HCl (Hydromorphone Inj 1 Mg/Ml Syringe) 0.25 mg IV Q5M PRN PRN Reason: PACU Use Only-Pain Stop: 06/24/21 19:24 Hydromorphone HCl (Hydromorphone Inj 0.5 Mg/0.5 Ml Syr) 0.5 mg IV Q3H PRN PRN Reason: MODERATE Pain (Scale 4,5,6) & Pre PT Stop: 07/08/21 15:46 Hydromorphone HCl (Hydromorphone Inj 1 Mg/Ml Syringe) 1 mg IV Q3H PRN PRN Reason: SEVERE Pain (Scale 7,8,9,10) Stop: 07/08/21 15:46 Hydroxyzine HCl (Hydroxyzine Hcl 25 Mg Tab) 25 mg PO Q8H PRN PRN Reason: Anxiety Stop: 07/24/21 15:46 Cefazolin Sodium (Ancef 2000mg) 2,000 mg in 15 mls @ 3.75 mls/min IV Q8H GIULIANA; Protocol Stop: 06/25/21 05:03 Acetaminophen (Ofirmev) 1,000 mg in 100 mls @ 400 mls/hr IV Q8H PRN PRN Reason: Pain Rating 1-3 & Pre PT Stop: 06/27/21 15:46 Lorazepam (Ativan) 0.5 mg in 1 mls @ 1 mls/min IV Q8H PRN PRN Reason: Sedation/Anxiety Stop: 07/24/21 15:46 Lactated Ringer's (Lr) 1,000 mls @ 100 mls/hr IV .Q10H GIULIANA Stop: 07/24/21 15:46 Last Admin: 06/24/21 16:26 Dose: 100 mls/hr Documented by: Promethazine HCl 12.5 mg/ (Sodium Chloride) 50.5 mls @ 202 mls/hr IV Q6H PRN PRN Reason: Nausea &/or Vomiting Stop: 07/24/21 15:46 Influenza Virus Vaccine Quadrival (Do Not Administer Flu Vaccine) 1 ea N/A PRN PRN PRN Reason: Notification Stop: 07/24/21 15:46 Lorazepam (Lorazepam 0.5 Mg Tab) 0.5 mg PO Q8H PRN PRN Reason: Sedation/Anxiety Stop: 07/24/21 15:46 Magnesium Hydroxide (Magnesium Hydroxide Susp 30 Ml Udc) 30 ml PO Q24H PRN PRN Reason: Constipation Stop: 07/24/21 15:46 Metoclopramide HCl (Metoclopramide Hcl Inj 5 Mg/Ml 2 Ml Vial) 10 mg IV Q6H PRN PRN Reason: Nausea &/or Vomiting Stop: 07/24/21 15:46 Morphine Sulfate (Morphine Sulfate 4 Mg/Ml 1 Ml Carp\Vial) 4 mg IV Q4H PRN PRN Reason: Pain Stop: 07/07/21 16:29 Last Admin: 06/23/21 21:26 Dose: 4 mg Documented by: Naloxone HCl (Naloxone Hcl 0.4 Mg/1 Ml Vial/Carp) 0.1 mg IV Q5M PRN PRN Reason: Oversedation/Resp depression Stop: 07/24/21 15:46 Ondansetron HCl (Ondansetron Inj 2 Mg/Ml 2 Ml Vial) 4 mg IV ONCE PRN PRN Reason: PACU Use Only-Nausea/Vomiting Stop: 06/24/21 19:24 Ondansetron HCl (Ondansetron Inj 2 Mg/Ml 2 Ml Vial) 4 mg IV Q6H PRN PRN Reason: Nausea &/or Vomiting Stop: 07/24/21 15:46 Ondansetron HCl (Ondansetron 4 Mg Od Tab) 4 mg PO Q6H PRN PRN Reason: Nausea Stop: 07/24/21 15:46 Oxycodone HCl (Oxycodone Hcl Ir 5 Mg Tab (Immediate Release)) 5 mg PO Q6H PRN PRN Reason: Pain Stop: 07/07/21 16:29 Oxycodone HCl (Oxycodone Hcl Ir 5 Mg Tab (Immediate Release)) 5 - 10 mg PO Q4H PRN PRN Reason: Pain & Pre PT Stop: 07/08/21 15:46 Pantoprazole Sodium (Pantoprazole 40 Mg Tab) 40 mg PO DAILY GIULIANA Stop: 07/24/21 08:59 Last Admin: 06/24/21 07:32 Dose: 40 mg Documented by: Pneumococcal Polyvalent Vaccine (Do Not Administer Pneumococcal Vaccine) 1 ea N/A PRN PRN PRN Reason: Notification Stop: 07/24/21 15:46 Polyethylene Glycol (Polyethylene (Miralax) 17 Gm Pack) 17 gm PO Q6 GIULIANA Stop: 07/25/21 05:59 Senna/Docusate Sodium (Docusate Sodium/Senna 50/8.6mg Tab) 2 tab PO HS GIULIANA Stop: 07/24/21 20:59 Sodium Biphosphate/Sodium Phosphate (Sod Phosphate/Sod Biphosphate Enema 132 Ml Btl) 132 ml W[place] ONE PRN PRN Reason: Constipation Stop: 07/24/21 15:46 Tramadol HCl (Tramadol Hcl 50 Mg Tablet) 50 - 100 mg PO Q4H PRN PRN Reason: Moderate-Severe pain & Pre PT Stop: 07/24/21 15:46
[2021-06-24] MEDS: DOCUSATE SODIUM/SENNA 50/8.6MG TAB PO SCH (20:05)
[2021-06-24] MEDS: ceFAZolin 2000MG 2,000 MG/15 ML SYR IV SCH (20:06)
[2021-06-25] MEDS: ACETAMINOPHEN 325 MG TAB PO SCH ×4 (05:37→23:49)
[2021-06-25] MEDS: ceFAZolin 2000MG 2,000 MG/15 ML SYR IV SCH (05:37)
[2021-06-25] MEDS: POLYETHYLENE (MIRALAX) 17 GM PACK PO SCH ×4 (05:45→23:48)
--- NOTE | 2021-06-25 06:35 | Orthopedic Progress Note ---
Date of Service June 25, 2021 Assessment & Plan (1) Lumbar disc herniation with radiculopathy: Plan: Patient is doing well postop day #1. We will continue with PT and OT today. Also continue with GI and DVT prophylaxis. If he does well today he is likely be discharged home tomorrow. Admission and Anticipated Discharge Date Admission Date: June 24, 2021 Subjective Patient seen bedside in room 315. He is comfortable this morning. His leg pain is gone. He still feels his legs are little weak however. He has mild amount of lower back pain but the pain is otherwise well controlled. He denies any other numbness, tingling, or paresthesias. Physical Exam Physical Exam: On exam he is alert and oriented. He is nontender to palpation in his abdomen his calves are supple nontender. Dressings clean dry and intact. KARIN drain is holding suction had 40 cc out on the last shift. Results & Data ([facility]) Vital Signs (Past 12 Hours) Vital Signs Temp Pulse Resp BP Pulse Ox 06/25/21 03:16 36.6 C 64 17 132/84 94 06/24/21 22:12 36.6 C 74 17 110/60 94 06/24/21 20:02 95 06/24/21 20:00 95 06/24/21 18:50 36.8 C 69 18 127/79 95
[2021-06-25 08:19] LABS: Hematocrit (blood only) 42.6 % (42-52); Hemoglobin 14.3 g/dL (14.0-18.0); Mean Corpuscular Hemoglobin 31.6 pg (25-34); Mean Corpuscular Hgb Conc 33.6 g/dL (32-36); Mean Corpuscular Volume 94.2 fL (80-100); Platelet Count 211 K/uL (130-400); RDW Coefficient of Variation 12.3 % (11.5-14.5); RDW Standard Deviation 42.5 fL (36.4-46.3); Red Blood Count 4.52 M/uL (4.7-6.1); White Blood Count 16.94 K/uL (4.8-10.8)
[2021-06-25] MEDS: PANTOprazole 40 MG TAB PO SCH (08:38)
[2021-06-25 08:43] LABS: BUN Creatinine Ratio 22.2 (10-20); Creatinine Clr Calc Pharmacy 80.9 ml/min; Est GFR (African American) 98.2 ml/min; Est GFR (Non-African American) 84.7 ml/min; Magnesium 2.2 mg/dl (1.8-2.4); Phosphorus 3.3 mg/dl (2.5-4.9); Potassium 3.9 mmol/L (3.5-5.1)
--- NOTE | 2021-06-25 16:12 | Hospitalist Progress Note ---
Date of Service June 25, 2021 Assessment & Plan (1) Lumbar disc herniation with radiculopathy: Plan: -Patient presenting from home with reports of worsening and intractable low back pain with radiation into the right leg over the past few weeks. MRI at outside facility showed lumbar disc herniation L3-L4. -Spine Ortho consult, Dr. Grier -Status post laminectomy involving L3-L4 -Appreciate Ortho input and recommendation -Likely discharge tomorrow pre-op eval -EKG and CXR unremarkable. Patient denies cardiopulmonary complaints. Patient describes a cardiac event approximately 25 years ago for which he had a cardiac cath that he reports was normal. Patient reports he was on Coumadin for 1 year. I reached out to patient's cardiology office however records or details of this event are not available. -Given patient's lack of cardiopulmonary symptoms and unremarkable EKG and CXR, patient considered an acceptable risk to proceed to surgery -Pain control with scheduled Tylenol and as needed oxycodone and morphine -Postop management as per Ortho -Remains medically stable (2) DVT prophylaxis: Plan: -SCDs / per ortho Admission and Anticipated Discharge Date Admission Date: June 24, 2021 Subjective 06/25/2021 The patient was seen and examined in medical floor He is a status post laminectomy involving L3-L4 Complains to have some leg pain but denies any significant pain at the back Denies any other significant symptoms Review of Systems Review of Systems: All systems reviewed and are unremarkable except as noted below Musculoskeletal: Bilateral leg pain and minimal back pain Physical Exam Physical Exam: Lying in bed comfortably Constitutional: well developed, well nourished and + obese Eyes: PERRL, conjunctivae normal, anicteric sclerae ENMT: external ear and nose normal, oropharynx normal Neck: trachea midline, no thyromegaly Respiratory: no respiratory distress and no cough Auscultation: lungs clear to auscultation bilaterally Cardiovascular: Rate/Rhythm: regular rate and regular rhythm; not tachycardic Heart Sounds: normal S1 and normal S2; no murmur Extremities: no edema Gastrointestinal (Abdomen): Inspection/Auscultation: normal bowel sounds; abdomen not distended Percussion/Palpation: abdomen soft; abdomen nontender Musculoskeletal: Back pain and leg pain Neurologic: Alert, awake and oriented x3 Psychiatric: A+Ox3, euthymic affect Lymphatic: no cervical or axillary lymphadenopathy Results & Data Results & Data ([facility]) Vital Signs (Past 12 Hours) Vital Signs Temp Pulse Resp BP Pulse Ox 06/25/21 14:55 36.7 C 59 L 16 138/87 96 06/25/21 10:59 36.8 C 62 16 109/64 94 06/25/21 07:23 36.6 C 62 16 125/71 96 Laboratory Results Short CBC 06/25/21 Range/Units 07:56 WBC 16.94 H (4.8-10.8) K/uL Hgb 14.3 (14.0-18.0) g/dL Hct 42.6 (42-52) % Plt Count 211 (130-400) K/uL BMP 06/25/21 07:56 Sodium 139 Potassium 3.9 Chloride 105 Carbon Dioxide 25 BUN 21 H Creatinine 0.94 Glucose 114 H Calcium 8.0 L Medications Administered Current Inpatient Medications Acetaminophen (Acetaminophen 325 Mg Tab) 650 mg PO Q6H GIULIANA Stop: 07/23/21 17:59 Last Admin: 06/25/21 12:27 Dose: 650 mg Documented by: Acetaminophen (Acetaminophen 500 Mg Tab) 1,000 mg PO Q8H PRN PRN Reason: MILD Pain Scale 1,2,3 & Pre PT Stop: 07/24/21 15:46 Al Hydrox/Mg Hydrox/Simethicone (Aluminum/Magnesium Susp 30 Ml Udc) 30 ml PO Q6H PRN PRN Reason: Dyspepsia Stop: 07/24/21 15:46 Bisacodyl (Bisacodyl 10 Mg Supp) 10 mg [place] DAILY PRN PRN Reason: Constipation Stop: 07/24/21 15:46 Last Admin: 06/25/21 16:02 Dose: 10 mg Documented by: Diphenhydramine HCl (Diphenhydramine Capsule 25 Mg Cap) 25 mg PO Q6H PRN PRN Reason: Allergic Rhinitis/Insomnia Stop: 07/24/21 15:46 Famotidine (Famotidine 20 Mg Tab) 20 mg PO Q12H PRN PRN Reason: Dyspepsia Stop: 07/24/21 15:46 Hydromorphone HCl (Hydromorphone Inj 0.5 Mg/0.5 Ml Syr) 0.5 mg IV Q3H PRN PRN Reason: MODERATE Pain (Scale 4,5,6) & Pre PT Stop: 07/08/21 15:46 Last Admin: 06/25/21 05:37 Dose: 0.5 mg Documented by: Hydromorphone HCl (Hydromorphone Inj 1 Mg/Ml Syringe) 1 mg IV Q3H PRN PRN Reason: SEVERE Pain (Scale 7,8,9,10) Stop: 07/08/21 15:46 Hydroxyzine HCl (Hydroxyzine Hcl 25 Mg Tab) 25 mg PO Q8H PRN PRN Reason: Anxiety Stop: 07/24/21 15:46 Acetaminophen (Ofirmev) 1,000 mg in 100 mls @ 400 mls/hr IV Q8H PRN PRN Reason: Pain Rating 1-3 & Pre PT Stop: 06/27/21 15:46 Lorazepam (Ativan) 0.5 mg in 1 mls @ 1 mls/min IV Q8H PRN PRN Reason: Sedation/Anxiety Stop: 07/24/21 15:46 Promethazine HCl 12.5 mg/ (Sodium Chloride) 50.5 mls @ 202 mls/hr IV Q6H PRN PRN Reason: Nausea &/or Vomiting Stop: 07/24/21 15:46 Influenza Virus Vaccine Quadrival (Do Not Administer Flu Vaccine) 1 ea N/A PRN PRN PRN Reason: Notification Stop: 07/24/21 15:46 Lorazepam (Lorazepam 0.5 Mg Tab) 0.5 mg PO Q8H PRN PRN Reason: Sedation/Anxiety Stop: 07/24/21 15:46 Magnesium Hydroxide (Magnesium Hydroxide Susp 30 Ml Udc) 30 ml PO Q24H PRN PRN Reason: Constipation Stop: 07/24/21 15:46 Metoclopramide HCl (Metoclopramide Hcl Inj 5 Mg/Ml 2 Ml Vial) 10 mg IV Q6H PRN PRN Reason: Nausea &/or Vomiting Stop: 07/24/21 15:46 Morphine Sulfate (Morphine Sulfate 4 Mg/Ml 1 Ml Carp\Vial) 4 mg IV Q4H PRN PRN Reason: Pain Stop: 07/07/21 16:29 Last Admin: 06/23/21 21:26 Dose: 4 mg Documented by: Naloxone HCl (Naloxone Hcl 0.4 Mg/1 Ml Vial/Carp) 0.1 mg IV Q5M PRN PRN Reason: Oversedation/Resp depression Stop: 07/24/21 15:46 Ondansetron HCl (Ondansetron Inj 2 Mg/Ml 2 Ml Vial) 4 mg IV Q6H PRN PRN Reason: Nausea &/or Vomiting Stop: 07/24/21 15:46 Ondansetron HCl (Ondansetron 4 Mg Od Tab) 4 mg PO Q6H PRN PRN Reason: Nausea Stop: 07/24/21 15:46 Oxycodone HCl (Oxycodone Hcl Ir 5 Mg Tab (Immediate Release)) 5 mg PO Q6H PRN PRN Reason: Pain Stop: 07/07/21 16:29 Oxycodone HCl (Oxycodone Hcl Ir 5 Mg Tab (Immediate Release)) 5 - 10 mg PO Q4H PRN PRN Reason: Pain & Pre PT Stop: 07/08/21 15:46 Last Admin: 06/25/21 03:18 Dose: 5 mg Documented by: Pantoprazole Sodium (Pantoprazole 40 Mg Tab) 40 mg PO DAILY GIULIANA Stop: 07/24/21 08:59 Last Admin: 06/25/21 08:38 Dose: 40 mg Documented by: Pneumococcal Polyvalent Vaccine (Do Not Administer Pneumococcal Vaccine) 1 ea N/A PRN PRN PRN Reason: Notification Stop: 07/24/21 15:46 Polyethylene Glycol (Polyethylene (Miralax) 17 Gm Pack) 17 gm PO Q6 GIULIANA Stop: 07/25/21 05:59 Last Admin: 06/25/21 12:27 Dose: 17 gm Documented by: Senna/Docusate Sodium (Docusate Sodium/Senna 50/8.6mg Tab) 2 tab PO HS GIULIANA Stop: 07/24/21 20:59 Last Admin: 06/24/21 20:05 Dose: 2 tab Documented by: Sodium Biphosphate/Sodium Phosphate (Sod Phosphate/Sod Biphosphate Enema 132 Ml Btl) 132 ml FL ONE PRN PRN Reason: Constipation Stop: 07/24/21 15:46 Tramadol HCl (Tramadol Hcl 50 Mg Tablet) 50 - 100 mg PO Q4H PRN PRN Reason: Moderate-Severe pain & Pre PT Stop: 07/24/21 15:46
[2021-06-25] MEDS: DOCUSATE SODIUM/SENNA 50/8.6MG TAB PO SCH (20:00)
[2021-06-25] MEDS ORDERED: METHYLNALTREXONE BROMIDE 12 MG/0.6 ML VIAL SQ STA (23:33)
[2021-06-26] MEDS: ACETAMINOPHEN 325 MG TAB PO SCH ×2 (05:55→11:18)
[2021-06-26] MEDS: POLYETHYLENE (MIRALAX) 17 GM PACK PO SCH ×2 (05:55→11:18)
[2021-06-26 07:58] LABS: Hematocrit (blood only) 43.9 % (42-52); Hemoglobin 14.9 g/dL (14.0-18.0); Mean Corpuscular Hgb Conc 33.9 g/dL (32-36); Mean Corpuscular Volume 94.2 fL (80-100); Mean Platelet Volume 9.1 fL (7.4-10.4); Platelet Count 204 K/uL (130-400); RDW Coefficient of Variation 12.7 % (11.5-14.5); RDW Standard Deviation 43.4 fL (36.4-46.3); Red Blood Count 4.66 M/uL (4.7-6.1); White Blood Count 11.99 K/uL (4.8-10.8)
[2021-06-26] MEDS: PANTOprazole 40 MG TAB PO SCH (08:42)
[2021-06-26 08:43] LABS: BUN Creatinine Ratio 23.2 (10-20); Calcium 8.2 mg/dl (8.5-10.1); Creatinine Clr Calc Pharmacy 86.4 ml/min; Est GFR (African American) 104.5 ml/min; Est GFR (Non-African American) 90.1 ml/min
--- NOTE | 2021-06-26 08:43 | Orthopedic Progress Note ---
Date of Service June 26, 2021 Assessment & Plan (1) Lumbar disc herniation with radiculopathy: Plan: Patient is doing well postop day #2. He is independently ambulating he is tolerating p.o. and he meets discharge criteria. He is to lift nothing heavier than 5 to 7 pounds. He should change his dressing once daily once there is no drainage he may begin showering. He is going to follow-up with our office in approximately 2 weeks. Admission and Anticipated Discharge Date Admission Date: June 24, 2021 Subjective Patient seen bedside in room 315. He is doing well at this point. His pain is well controlled. Had issues overnight where he was constipated this has resolved however. He is tolerating p.o. he is able to ambulate independently and would like to go home. He denies any other numbness, tingling, or paresthesias. Physical Exam Physical Exam: On exam he is alert and oriented. His lower extremity motor exam reveals no focal atrophy his abdomen soft nontender his calves are supple and nontender. His dressing is clean dry and intact. His KARIN drain is placed out 25 cc on last shift. Results & Data ([facility]) Vital Signs (Past 12 Hours) Vital Signs Temp Pulse Resp BP Pulse Ox 06/26/21 07:20 37 C 67 16 116/75 94 06/25/21 22:36 36.8 C 76 17 135/83 94
--- NOTE | 2021-06-26 08:56 | Hospitalist Progress Note ---
Date of Service June 26, 2021 Assessment & Plan (1) Lumbar disc herniation with radiculopathy: Plan: -Patient presenting from home with reports of worsening and intractable low back pain with radiation into the right leg over the past few weeks. MRI at outside facility showed lumbar disc herniation L3-L4. -Spine Ortho consult, Dr. Grier -Status post laminectomy involving L3-L4 -Appreciate Ortho input and recommendation -Plan to discharge today pre-op eval -EKG and CXR unremarkable. Patient denies cardiopulmonary complaints. Patient describes a cardiac event approximately 25 years ago for which he had a cardiac cath that he reports was normal. Patient reports he was on Coumadin for 1 year. I reached out to patient's cardiology office however records or details of this event are not available. -Given patient's lack of cardiopulmonary symptoms and unremarkable EKG and CXR, patient considered an acceptable risk to proceed to surgery -Pain control with scheduled Tylenol and as needed oxycodone and morphine -Postop management as per Ortho -Remains medically stable Constipation Patient has been on pain medications prior to his admission, due to back pain -likely opioid induced Now on bowel regimen, had several BMs overnight Counseled about needing bowel regimen after discharge (2) DVT prophylaxis: Plan: -SCDs / per ortho Admission and Anticipated Discharge Date Admission Date: June 24, 2021 Subjective Patient seen in follow-up of back pain secondary to lumbar disc herniation Status post decompression, fusion L3-L4 Patient is currently lying in bed in no acute distress He is awake alert oriented, answering questions appropriately Denies any chest pain, shortness of breath, abdominal pain, nausea or vomiting He is able to move extremities, and denies any sensory loss currently Previously complaining about constipation, said he had several bowel movements overnight Plan to discharge later today Review of Systems Review of Systems: All systems reviewed & are unremarkable except as noted in Subjective Physical Exam Physical Exam: Constitutional:L WD/WN, M in NAD Eyes: PERRL, EOMI, conju nctivae normal, an icteric sclerae ENMT: external ear and n ose normal, oropha rynx normal Respiratory: normal respiratory effort, lungs meri ar to auscultation Cardiovascular:L Rate/Rhythm: regul ar rate and regula r rhythm Vessels: normal peripheral pulses Extremiti es: no edema Gastrointestinal ( Abdomen): normal bowel sound s, soft, nontender Musculoskeletal: moves extremities, no significant se nsory deficits not ed Skin: no rashes, warm an d dry Neurologic: PERRL, EOMI, no fa ce palsy, no dysar thria, moves extre mities Psychiatric: A+Ox3, euthymic af fect Results & Data Results & Data ([facility]) Vital Signs (Past 12 Hours) Vital Signs Temp Pulse Resp BP Pulse Ox 06/26/21 07:20 37 C 67 16 116/75 94 06/25/21 22:36 36.8 C 76 17 135/83 94 Laboratory Results 06/26/21 06/26/21 Range/Units 07:44 07:44 WBC 11.99 H (4.8-10.8) K/uL RBC 4.66 L (4.7-6.1) M/uL Hgb 14.9 (14.0-18.0) g/dL Hct 43.9 (42-52) % MCV 94.2 (80-100) fL MCH 32.0 (25-34) pg MCHC 33.9 (32-36) g/dL RDW Std Deviation 43.4 (36.4-46.3) fL RDW Coeff of Gerald 12.7 (11.5-14.5) % Plt Count 204 (130-400) K/uL MPV 9.1 (7.4-10.4) fL Sodium 139 (136-145) mmol/L Potassium 4.0 (3.5-5.1) mmol/L Chloride 104 (98-107) mmol/L Carbon Dioxide 26 (21-32) mmol/L Anion Gap 9.0 (3-11) BUN 20 H (7-18) mg/dl Creatinine 0.88 (0.6-1.4) mg/dl Est Cr Clr Drug Dosing 86.4 ml/min Est GFR ( Amer) 104.5 ml/min Est GFR (Non-Af Amer) 90.1 ml/min BUN/Creatinine Ratio 23.2 H (10-20) Glucose 100 H (70-99) mg/dl Calcium 8.2 L (8.5-10.1) mg/dl Medications Administered Current Inpatient Medications Acetaminophen (Acetaminophen 325 Mg Tab) 650 mg PO Q6H GIULIANA Stop: 07/23/21 17:59 Last Admin: 06/26/21 05:55 Dose: 650 mg Documented by: Acetaminophen (Acetaminophen 500 Mg Tab) 1,000 mg PO Q8H PRN PRN Reason: MILD Pain Scale 1,2,3 & Pre PT Stop: 07/24/21 15:46 Al Hydrox/Mg Hydrox/Simethicone (Aluminum/Magnesium Susp 30 Ml Udc) 30 ml PO Q6H PRN PRN Reason: Dyspepsia Stop: 07/24/21 15:46 Bisacodyl (Bisacodyl 10 Mg Supp) 10 mg [place] DAILY PRN PRN Reason: Constipation Stop: 07/24/21 15:46 Last Admin: 06/25/21 16:02 Dose: 10 mg Documented by: Diphenhydramine HCl (Diphenhydramine Capsule 25 Mg Cap) 25 mg PO Q6H PRN PRN Reason: Allergic Rhinitis/Insomnia Stop: 07/24/21 15:46 Famotidine (Famotidine 20 Mg Tab) 20 mg PO Q12H PRN PRN Reason: Dyspepsia Stop: 07/24/21 15:46 Hydromorphone HCl (Hydromorphone Inj 0.5 Mg/0.5 Ml Syr) 0.5 mg IV Q3H PRN PRN Reason: MODERATE Pain (Scale 4,5,6) & Pre PT Stop: 07/08/21 15:46 Last Admin: 06/25/21 05:37 Dose: 0.5 mg Documented by: Hydromorphone HCl (Hydromorphone Inj 1 Mg/Ml Syringe) 1 mg IV Q3H PRN PRN Reason: SEVERE Pain (Scale 7,8,9,10) Stop: 07/08/21 15:46 Hydroxyzine HCl (Hydroxyzine Hcl 25 Mg Tab) 25 mg PO Q8H PRN PRN Reason: Anxiety Stop: 07/24/21 15:46 Acetaminophen (Ofirmev) 1,000 mg in 100 mls @ 400 mls/hr IV Q8H PRN PRN Reason: Pain Rating 1-3 & Pre PT Stop: 06/27/21 15:46 Lorazepam (Ativan) 0.5 mg in 1 mls @ 1 mls/min IV Q8H PRN PRN Reason: Sedation/Anxiety Stop: 07/24/21 15:46 Promethazine HCl 12.5 mg/ (Sodium Chloride) 50.5 mls @ 202 mls/hr IV Q6H PRN PRN Reason: Nausea &/or Vomiting Stop: 07/24/21 15:46 Influenza Virus Vaccine Quadrival (Do Not Administer Flu Vaccine) 1 ea N/A PRN PRN PRN Reason: Notification Stop: 07/24/21 15:46 Lorazepam (Lorazepam 0.5 Mg Tab) 0.5 mg PO Q8H PRN PRN Reason: Sedation/Anxiety Stop: 07/24/21 15:46 Magnesium Hydroxide (Magnesium Hydroxide Susp 30 Ml Udc) 30 ml PO Q24H PRN PRN Reason: Constipation Stop: 07/24/21 15:46 Last Admin: 06/25/21 19:19 Dose: 30 ml Documented by: Metoclopramide HCl (Metoclopramide Hcl Inj 5 Mg/Ml 2 Ml Vial) 10 mg IV Q6H PRN PRN Reason: Nausea &/or Vomiting Stop: 07/24/21 15:46 Morphine Sulfate (Morphine Sulfate 4 Mg/Ml 1 Ml Carp\Vial) 4 mg IV Q4H PRN PRN Reason: Pain Stop: 07/07/21 16:29 Last Admin: 06/23/21 21:26 Dose: 4 mg Documented by: Naloxone HCl (Naloxone Hcl 0.4 Mg/1 Ml Vial/Carp) 0.1 mg IV Q5M PRN PRN Reason: Oversedation/Resp depression Stop: 07/24/21 15:46 Ondansetron HCl (Ondansetron Inj 2 Mg/Ml 2 Ml Vial) 4 mg IV Q6H PRN PRN Reason: Nausea &/or Vomiting Stop: 07/24/21 15:46 Ondansetron HCl (Ondansetron 4 Mg Od Tab) 4 mg PO Q6H PRN PRN Reason: Nausea Stop: 07/24/21 15:46 Oxycodone HCl (Oxycodone Hcl Ir 5 Mg Tab (Immediate Release)) 5 mg PO Q6H PRN PRN Reason: Pain Stop: 07/07/21 16:29 Oxycodone HCl (Oxycodone Hcl Ir 5 Mg Tab (Immediate Release)) 5 - 10 mg PO Q4H PRN PRN Reason: Pain & Pre PT Stop: 07/08/21 15:46 Last Admin: 06/25/21 03:18 Dose: 5 mg Documented by: Pantoprazole Sodium (Pantoprazole 40 Mg Tab) 40 mg PO DAILY GIULIANA Stop: 07/24/21 08:59 Last Admin: 06/26/21 08:42 Dose: 40 mg Documented by: Pneumococcal Polyvalent Vaccine (Do Not Administer Pneumococcal Vaccine) 1 ea N/A PRN PRN PRN Reason: Notification Stop: 07/24/21 15:46 Polyethylene Glycol (Polyethylene (Miralax) 17 Gm Pack) 17 gm PO Q6 GIULIANA Stop: 07/25/21 05:59 Last Admin: 06/26/21 05:55 Dose: 17 gm Documented by: Senna/Docusate Sodium (Docusate Sodium/Senna 50/8.6mg Tab) 2 tab PO HS GIULIANA Stop: 07/24/21 20:59 Last Admin: 06/25/21 20:00 Dose: 2 tab Documented by: Sodium Biphosphate/Sodium Phosphate (Sod Phosphate/Sod Biphosphate Enema 132 Ml Btl) 132 ml [place] ONE PRN PRN Reason: Constipation Stop: 07/24/21 15:46 Last Admin: 06/25/21 23:09 Dose: 132 ml Documented by: Tramadol HCl (Tramadol Hcl 50 Mg Tablet) 50 - 100 mg PO Q4H PRN PRN Reason: Moderate-Severe pain & Pre PT Stop: 07/24/21 15:46
--- NOTE | 2021-06-26 08:56 | Discharge Summary ---
Date of Service June 26, 2021 Admission HPI Per Admitting Provider 66-year-old male with PMH renal calculi, back surgery in the 1980s, hernia repair x3, and other problems listed below who presents to the ED for evaluation of intractable low back pain. Patient reports worsening low back pain over the past 3 weeks. Pain has now begun to radiate down the patient's right leg to the foot. He has had episodes where his right leg gives out from under him. He reports numbness and tingling to the right leg. He denies any bowel or bladder dysfunction. Patient has been treated as an outpatient with steroids and narcotics without any relief in symptoms. MRI obtained at outside facility demonstrated an L3 disc bulge. Patient denies fevers and chills. No chest pain or shortness of breath. Denies lightheadedness, dizziness, diaphoresis, syncopal events. Reports he has had a poor appetite however no abdominal pain, nausea, vomiting, diarrhea. No urinary symptoms. In the ED, patient is hemodynamically stable and labs are unremarkable. Patient received IV dexamethasone 6 mg IV, morphine 4 mg IV x 2 doses. Admission Exam Per Admitting Provider Constitutional: WD/WN, vitals as above Eyes: PERRL, conjunctivae normal, anicteric sclerae ENMT: external ear and nose normal, oropharynx normal Respiratory: normal respiratory effort, lungs clear to auscultation Cardiovascular: Rate/Rhythm: regular rate and regular rhythm Vessels: normal peripheral pulses Extremities: no edema Gastrointestinal (Abdomen): normal bowel sounds, soft, nontender, no hepatosplenomegaly Musculoskeletal: no cyanosis or clubbing, extremities motor strength 5/5 Spine: + straight leg raise positive Decrease sensation RLE Skin: no rashes, warm and dry Neurologic: PERRL, EOMI, accommodation nl, no face palsy, no dysarthria Psychiatric: A+Ox3, euthymic affect Principal Diagnosis lumbar disc herniation with radiculopathy Discharge Exam Constitutional: WD/WN, M in NAD Eyes: PERRL, EOMI, conjunctivae normal, anicteric sclerae ENMT: external ear and nose normal, oropharynx normal Respiratory: normal respiratory effort, lungs clear to auscultation Cardiovascular: Rate/Rhythm: regular rate and regular rhythm Vessels: normal peripheral pulses Extremities: no edema Gastrointestinal (Abdomen): normal bowel sounds, soft, nontender Musculoskeletal: moves extremities, no significant sensory deficits noted Skin: no rashes, warm and dry Neurologic: PERRL, EOMI, no face palsy, no dysarthria, moves extremities Psychiatric: A+Ox3, euthymic affect Discharge Data Allergies Allergy/AdvReac Type Severity Reaction Status Date / Time diphenhydramine AdvReac Irritable Unverified 06/23/21 13:39 [From Benadryl] Consultations 06/23/21 13:55 ED Decision to Admit Stat 06/23/21 15:03 Consult Orthopedic Surgery Routine Procedures Performed Operation Date: 06/24/21 11:55 Actual Procedures p L3-L4 Laminectomy(Bilateral) - Romario Grier DO Ordered Studies 06/24/21 09:00 FL spine 1V any level Routine Hospital Course (1) Lumbar disc herniation with radiculopathy: -Patient presenting from home with reports of worsening and intractable low back pain with radiation into the right leg over the past few weeks. MRI at outside facility showed lumbar disc herniation L3-L4. -Spine Ortho consult, Dr. Grier -Status post laminectomy involving L3-L4 -Appreciate Ortho input and recommendation -Plan to discharge today pre-op eval -EKG and CXR unremarkable. Patient denies cardiopulmonary complaints. Patient describes a cardiac event approximately 25 years ago for which he had a cardiac cath that he reports was normal. Patient reports he was on Coumadin for 1 year. I reached out to patient's cardiology office however records or details of this event are not available. -Given patient's lack of cardiopulmonary symptoms and unremarkable EKG and CXR, patient considered an acceptable risk to proceed to surgery -Pain control with scheduled Tylenol and as needed oxycodone and morphine -Postop management as per Ortho -Remains medically stable Constipation Patient has been on pain medications prior to his admission, due to back pain -likely opioid induced Now on bowel regimen, had several BMs overnight Counseled about needing bowel regimen after discharge (2) DVT prophylaxis: -SCDs / per ortho Total Time Total Time Spent Total Time Spent (In Minutes): 40 Discharge Plan Discharge Items Patient Disposition: Home - Self-Care Reason For Visit: INTRACTABLE BACK PAIN Discharge Diagnosis: lumbar disc herniation with radiculopathy Activity: As commented below Non-emergency contact: Primary Care Provider Call non-emergency contact if: you have any medication questions Follow-up/Referrals: Romario Grier DO [Surgeon] - Yoselyn De Paz MD [Primary Care Provider] - Diet: Regular Addtl Attending Provider Instructions: ACTIVITY RECOMMENDATIONS: SELF CARE INSTRUCTIONS AFTER A LAMINECTOMY 1. No prolonged sitting (less than 30 minutes for the first 3 weeks after surgery). 2. No bending, lifting more than 5 pounds, or twisting (roll like a log when turning in bed). 3. You may shower 3 days after surgery if no drainage from wound. Thoroughly dry wound. Do not soak in the tub. 4. Please walk as much as you can for exercise. Gradually increase the distance that you walk as your endurance increases. 5. You may drive in 7-10 days if you are comfortable and no longer requiring pain medications. SPECIAL CARE INSTRUCTIONS: VERY IMPORTANT TO READ AND REVIEW A. Your surgical incision has been closed with a cosmetic suture under the skin that will dissolve in about 6 weeks. In 14 days, you can use a pair of clean scissors and cut the suture that is left outside of the skin at the ends of your incision. B. Complications are uncommon, but please contact us if you have any signs or symptoms of: 1. wound infection (fever higher than 102.5 degrees F, redness, separation of wound, drainage, or increasing pain from the incision) 2. blood clots in legs (pain, swelling, redness and warmth in legs) 3. urinary tract infection (fever higher than 102.5 degrees, burning upon urination or increased frequency of urination) 4. nerve problems (inability to walk on your toes or heels, numbness, loss of bowel or bladder control) 5. any other symptoms that concern you. C. Please call the office at if you have any concerns or questions about your operation or recovery. MANAGING PAIN AFTER SPINAL SURGERY 1. Narcotic medication is intended for short-term use and will be provided for surgical pain. Surgical pain usually lasts for a period of 4-6 weeks. Narcotic medication includes Percocet, Vicodin, Darvocet, Tylenol #3 or Lortab. 2. Longer-term pain is more appropriately treated with non-narcotic medication such as Tylenol ES. 3. Muscle spasm is not appropriately treated with narcotics. Muscle relaxers such as Soma, Flexeril or Skelaxin can be used along with Tylenol ES. 4. Remember that we all live with some "aches and pains". This is not unusual or uncommon after an injury or as we get older. 5. We will provide appropriate medication within the normal guidelines of their prescribed use. We will also be very cautious and aware of potential abuse and extended duration of patients' medication needs. 6. Please allow 2-3 days to process refills. Prescriptions will not be mailed but must be picked up at the office. FOLLOW UP VISIT: Keep your scheduled follow-up appointment. Any questions, please call the office at . Addtl Territory Development Manager Provider Instructions: For constipation, you can take MiraLAX once or twice a day. You can also take Colace once or twice a day. Both of these medications are available [id number]. Make sure you have a soft stool daily. Pending Studies at Discharge: No Stand-Alone Forms: My [facility] Pfenex, Smoking Cessation Medications and DC Order Prescriptions: New oxycodone 5 mg tablet 5 mg PO Q6H PRN (Reason: pain, severe) Qty: 20 RF: 0 tramadol 50 mg tablet 50 mg PO Q6H PRN (Reason: pain, moderate) Qty: 20 RF: 0 Continued oxycodone-acetaminophen 5-325 mg tablet 1 tab PO Q6H PRN (Reason: Pain) RF: 0 multivitamin Tablet 1 tab PO DAILY RF: 0 aspirin 81 mg Capsule 81 mg PO DAILY RF: 0 omeprazole 20 mg Capsule,Delayed Release(Dr/Ec) 20 mg PO DAILY RF: 0 Discharge Orders: Discharge Order (Routine); Ordered 06/26/21 Ordered By: Rashawn Holm Admission Data Admit Date/Time: 06/24/21 10:58 Attending Provider: Donovan Degroot Admit Provider: Donovan Degroot Primary Care Provider: Yoselyn De Paz Other Providers: Donovan Degroot ; Romario Grier ; Lana Goyal
== END 2021-06-26 13:16 | disposition home or self-care (01) | DRG 517 ==
LOC: ED 10:31 → 3E 10:31 → SUATTDRO 06-24 10:58

== ENCOUNTER 2023-10-17 10:35 | Observation (INO) ==
--- NOTE | 2023-10-17 13:21 | XRay Report ---
XR chest 1V not portable CLINICAL HISTORY: Chest pain, nonspecific TECHNIQUE: Single frontal radiograph of the chest was obtained. Comparison: Comparison is made to chest radiograph 06/23/2021 FINDINGS: No lines and tubes are seen. The aorta is tortuous. The remainder of the cardiomediastinal silhouette is unremarkable. The lungs are clear. No evidence of pleural effusion or pneumothorax. IMPRESSION: No acute chest disease. ACT 112: Negative or not required by law. Electronically signed by: Ricky Chester M.D. 10/17/2023 1:19 PM
[2023-10-17 13:43] LABS: Basophils # (auto) 0.06 K/uL (0.00-0.20); Basophils % (auto) 0.8 %; Eosinophils # (auto) 0.86 K/uL (0.00-0.50); Eosinophils % (auto) 11.4 %; Hematocrit (blood only) 46.7 % (42.0-52.0); Hemoglobin 15.8 g/dl (14.0-18.0); Immature Granulocytes # (auto) 0.02 K/uL (0.01-0.20); Immature Granulocytes % (auto) 0.3 %; Lymphocytes # (auto) 1.25 K/uL (1.20-3.40); Lymphocytes % (auto) 16.6 %; Mean Corpuscular Hemoglobin 30.9 pg (25.0-34.0); Mean Corpuscular Hgb Conc 33.8 g/dL (32.0-36.0); Mean Corpuscular Volume 91.4 fL (80.0-100.0); Monocytes # (auto) 0.63 K/uL (0.11-0.59); Monocytes % (auto) 8.4 %; Neutrophils # (auto) 4.71 K/uL (1.40-6.50); Neutrophils % (auto) 62.5 %; Platelet Count 256 K/uL (130-400); RDW Coefficient of Variation 12.7 % (11.5-14.5); RDW Standard Deviation 42.3 fL (36.4-46.3); Red Blood Count 5.11 M/uL (4.70-6.10); White Blood Count 7.53 K/ul (4.8-10.8)
--- NOTE | 2023-10-17 13:44 | Emergency Department Note ---
Impression & Plan Reactive airway disease, Cough, Wheezing, Acute bronchospasm ED Provider Note NAME: ENRIQUE HERMAN AGE: 68 SEX: M : 1955 ARRIVES VIA: Walk-In INFORMANT: Patient, ED PROVIDER(S): Brian Tolbert DO CHIEF COMPLAINT: Difficulty breathing HPI: The patient is a 68-year-old male who presented to the emergency department directly from his pulmonary physicians office for an evaluation of difficulty breathing. The patient has been having ongoing symptoms of difficulty breathing ever since the end of 2022. He has had multiple visits for this but he was finally able to get into his pulmonary physician today. He was having worsening difficulty breathing and wheezing. His outpatient testing was not reassuring and the patient was sent to the emergency department for admission. Patient denies having any hemoptysis. He denies having any leg swelling. He does complain of pain in his right chest wall from coughing. He thinks this is from pulling a muscle. ROS: See above HPI for pertinent positives & negatives. A total of 10 systems reviewed and were otherwise negative. PAST MEDICAL HISTORY: See Below PAST SURGICAL HISTORY: See Below FAMILY HISTORY: See Below SOCIAL HISTORY: See Below HOME MEDICATIONS: See Below ALLERGIES: See Below VITALS: See Below PHYSICAL EXAMINATION: GENERAL: Patient is awake alert in no acute distress patient is resting comfortably and showing no signs of anxiety EYES: The conjunctivae are clear. The pupils are round and reactive. EARS, NOSE, MOUTH AND THROAT: The nose is without any evidence of any deformity. NECK: The neck is nontender and supple. RESPIRATORY: Diminished breath sounds are noted throughout. There was conversational dyspnea as well as wheezing in all lung segura. CARDIOVASCULAR: Regular rate and rhythm noted there no murmurs rubs or gallops normal S1 normal S2. GASTROINTESTINAL: The abdomen is soft. Abdomen is nontender. MUSCULOSKELETAL/EXTREMITIES: There is no evidence of gross deformity full range of motion is noted in the hips and shoulders. SKIN: There is no obvious evidence of any rash. There are no petechiae, pallor or cyanosis noted. NEUROLOGIC: Patient is awake alert and oriented x3 MEDICAL DECISION MAKING: The patient is a 68-year-old male who presented to the emergency department for an evaluation of difficulty breathing. The patient's had ongoing and worsening symptoms over the last 2 months. He had an appointment today with pulmonary and was sent to our emergency department for further evaluation. I discussed patient's laboratory results with him. I discussed his condition with the provider who sent the patient to the emergency department. They would prefer the patient be admitted for inpatient management. I discussed the patient's condition with the on-call [facility] hospitalist. The patient was treated with DuoNeb as well as steroid therapy in the emergency department Triage Nursing notes reviewed. Prior medical records reviewed Vital Signs: reviewed and remarkable for no significant abnormalities Differential diagnosis: Reactive airway disease, pneumonia, pneumothorax, COPD, CHF, infections, cardiac ischemia, pulmonary embolism, musculoskeletal, gastrointestinal, as well as other pathologies. ER treatment provided: See below Diagnostics interpreted by me: ECG: EKG was obtained in the emergency department. My interpretation is normal sinus rhythm at 65 bpm. There is no ectopy or acute ST segment abnormalities noted. This was compared to a tracing from June 23, 2021. No changes were noted Cardiac Monitoring: An order was placed for continuous cardiac monitoring. The monitor shows a rate of 81 bpm with sinus rhythm Laboratory studies: As stated above and show below. Imaging studies: See below. Radiographic imaging was reviewed by myself Consultation(s): I discussed this case with Dr. Andre. Past Med/Surg History Medical History History of skin cancer MULTIPLE SPOTS, FROZEN OFF IN 'S OFFICE Hx of migraines Myocardial Infarction AGE 41, TAKEN TO [facility]>NO CATH, PASSED STRESS TEST; F/U [facility] IN [place] FOR 2 YEARS History of COVID-19 2019, HOSPITALIZED AT [facility] FOR 9 DAYS; PNEUMONIA>"FEELS THOUGH IT HAS AFFECTED HIS BREATHING SOMEWHAT" Hx of renal calculi Biceps tendon rupture s/p repair Surgical History History of esophagogastroduodenoscopy (EGD) Hx of colonoscopy H/O umbilical hernia repair H/O inguinal hernia repair History of back surgery ; MOST RECENT TWICE IN 2021 Family History Father Heart disease Social History Smoking Status: Never smoker Second Hand Exposure: No; Do You Dip or Chew Tobacco: Yes (HX-QUIT YEARS AGO; ADVISED); Hx Alcohol Use: No Hx Substance Use: No Preferred Language: Sierra Leonean Communication Ability: Effective 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: No Beliefs That Will Affect Care: None marital status: Current Living Situation: Spouse Feels Safe at Home: Yes Assistive Devices: None Allergies Allergies Allergy/AdvReac Type Severity Reaction Status Date / Time diphenhydramine AdvReac Irritable Verified 10/10/23 09:54 [From Benadryl] Home Meds Home Medications Medication Instructions Recorded Confirmed aspirin 81 mg capsule 81 mg PO QAM 06/23/21 10/17/23 multivitamin 2 tab PO QAM 06/23/21 10/17/23 omeprazole 20 mg capsule,delayed 20 mg PO QAM 06/23/21 10/17/23 release albuterol sulfate 90 mcg/actuation 2 puff inhalation Q6H PRN Wheezing 10/10/23 10/17/23 aerosol inhaler paroxetine HCl 10 mg tablet (Paxil) 10 mg PO DAILY 10/10/23 10/17/23 umeclidinium 62.5 mcg-vilanterol 1 inh inhalation DAILY 10/10/23 10/17/23 25 mcg/actuation powdr for inhalation (Anoro Ellipta) Results & Data (ED) Vital Signs Vital Signs - 24 hr 10/17/23 10:53 Temperature 36.7 C Temperature Source Temporal Artery Scan Pulse Rate 68 Respiratory Rate 18 Respiratory Effort / Characteristics Non-Labored Spontaneous Respiratory Depth Normal Blood Pressure 178/88 H Blood Pressure Mean 118 Blood Pressure Position Sitting Pulse Oximetry 96 Oxygen Delivery Method Room Air Sepsis Recent Fever Within 48 Hours No Sepsis New/Unexplained Change in Mental Status No Sepsis Action Taken by Nursing No Action Required Home Medications Current Medication List: was personally reviewed by me Laboratory Data Attestation: I reviewed the patient's lab results. 10/17/23 13:16 10/17/23 13:16 Lab Results 10/17/23 10/17/23 10/17/23 Range/Units 13:15 13:16 14:19 WBC 7.53 (4.8-10.8) K/ul RBC 5.11 (4.70-6.10) M/uL Hgb 15.8 (14.0-18.0) g/dl Hct 46.7 (42.0-52.0) % MCV 91.4 (80.0-100.0) fL MCH 30.9 (25.0-34.0) pg MCHC 33.8 (32.0-36.0) g/dL RDW Std Deviation 42.3 (36.4-46.3) fL RDW Coeff of Gerald 12.7 (11.5-14.5) % Plt Count 256 (130-400) K/uL MPV 9.0 L (9.4-12.4) fL Immature Gran % (Auto) 0.3 % Neut % (Auto) 62.5 % Lymph % (Auto) 16.6 % Blanco % (Auto) 8.4 % Eos % (Auto) 11.4 % Baso % (Auto) 0.8 % Neut # (Auto) 4.71 (1.40-6.50) K/uL Lymph # (Auto) 1.25 (1.20-3.40) K/uL Blanco # (Auto) 0.63 H (0.11-0.59) K/uL Eos # (Auto) 0.86 H (0.00-0.50) K/uL Baso # (Auto) 0.06 (0.00-0.20) K/uL Immature Gran # (Auto) 0.02 (0.01-0.20) K/uL PT 11.1 (9.0-12.0) Seconds INR 1.0 (0.9-1.1) APTT 29 (21-31) Seconds PTT Ratio 1.0 D-Dimer 340 (0-500) ug/L FEU VBG pH 7.38 (7.36-7.41) VBG pCO2 53 H (38-50) mmHg VBG pO2 31 mmHg VBG HCO3 31 mmol/L VBG O2 Saturation < 60.0 % VBG Base Excess 4.7 mEq/L Sodium 138 (136-145) mmol/L Potassium 4.2 (3.5-5.1) mmol/L Chloride 104 (98-107) mmol/L Carbon Dioxide 28 (21-32) mmol/L Anion Gap 6 (3-11) BUN 17 (6-23) mg/dl Creatinine 0.84 (0.6-1.4) mg/dl Est Cr Clr Drug Dosing 89.7 ml/min Est GFR ( Amer) 105.0 ml/min Est GFR (Non-Af Amer) 90.6 ml/min BUN/Creatinine Ratio 20.2 H (10-20) Glucose 110 H (70-99(Fasting)) mg/dl Calcium 9.0 (8.6-10.3) mg/dl Magnesium 2.1 (1.7-2.4) mg/dl Total Bilirubin 0.5 (0.2-1.0) mg/dl AST 30 (13-39) U/L ALT 32 (7-52) U/L Alkaline Phosphatase 47 (34-104) U/L Troponin I High Sens 4.9 (0-20) pg/ml B-Natriuretic Peptide 14 (0-100) pg/ml Total Protein 7.5 (6.0-8.3) gm/dl Albumin 4.6 (3.4-5.0) gm/dl Globulin 2.9 (2.5-4.0) gm/dl Albumin/Globulin Ratio 1.6 (0.9-2) Adenovirus (PCR) Not Detected (NotDetected) B. pertussis DNA (PCR) Not Detected (NotDetected) B.parapertussis DNA PCR Not Detected (NotDetected) C. pneumoniae DNA (PCR) Not Detected (NotDetected) Coronavirus OC43 (PCR) Not Detected (NotDetected) Coronavirus HKU1 (PCR) Not Detected (NotDetected) Coronavirus 229E (PCR) Not Detected (NotDetected) SARS-CoV-2 (PCR) Not Detected (NotDetected) Coronavirus NL63 (PCR) Not Detected (NotDetected) Human Metapneumovir PCR Not Detected (NotDetected) Influenza Type A (PCR) Not Detected (NotDetected) Influenza Type B (PCR) Not Detected (NotDetected) M. pneumoniae (PCR) Not Detected (NotDetected) Parainfluenza 1 (PCR) Not Detected (NotDetected) Parainfluenza 2 (PCR) Not Detected (NotDetected) Parainfluenza 3 (PCR) Not Detected (NotDetected) Parainfluenza 4 (PCR) Not Detected (NotDetected) RSV (PCR) Not Detected (NotDetected) Entero/Rhino (PCR) Not Detected (NotDetected) Administered Medications Discontinued Medications Acetaminophen (Acetaminophen 500 Mg Tab) 1,000 mg PO NOW STA Stop: 10/17/23 15:26 Last Admin: 10/17/23 16:01 Dose: 1,000 mg Documented By: CC Albuterol (Albut/Ipratrop 3mg/0.5mg Neb 3 Ml Vial) 12 ml NEB ONE ONE; Protocol Stop: 10/17/23 13:40 Last Admin: 10/17/23 14:21 Dose: 12 ml Documented By: ILYA Dexamethasone Sodium Phosphate (DexamethasonePf 10 Mg/Ml Vial) 10 mg IV NOW ONE Stop: 10/17/23 13:40 Last Admin: 10/17/23 14:22 Dose: 10 mg Documented By: ILYA Guaifenesin/Codeine Phosphate (Guaifenesin/Codeine 100mg/10mg 5ml Udc) 10 ml PO NOW STA Stop: 10/17/23 15:09 Last Admin: 10/17/23 15:15 Dose: 10 ml Documented By: ABDULKADIR Magnesium Sulfate/Dextrose (Magnesium Sulfate / D5w) 1 gm in 100 mls @ 50 mls/hr IV ONE ONE Stop: 10/17/23 17:46 Last Infusion: 10/17/23 18:33 Dose: Infused Documented By: Admin: 10/17/23 16:04 Dose: 50 mls/hr Documented By: ABDULKADIR Lidocaine (Lidocaine 5% 1 Patch) 1 patch TD NOW STA Stop: 10/17/23 15:26 Last Admin: 10/17/23 16:03 Dose: 1 patch Documented By: ABDULKADIR Methylprednisolone (Methylprednisolone 125 Mg/2 Ml Vial) 60 mg IV ONE ONE Stop: 10/17/23 17:01 Last Admin: 10/17/23 16:08 Dose: 60 mg Documented By: CC Imaging Data Attestation: I personally reviewed and interpreted this imaging study as follows: My Impression: 1 view chest x-ray was obtained in the emergency department. My interpretation is no free air or definite infiltrate, final report below Radiologist's Impression: Chest X-Ray 10/17/23 10:57 XR chest 1V not portable CLINICAL HISTORY: Chest pain, nonspecific TECHNIQUE: Single frontal radiograph of the chest was obtained. Comparison: Comparison is made to chest radiograph 06/23/2021 FINDINGS: No lines and tubes are seen. The aorta is tortuous. The remainder of the cardiomediastinal silhouette is unremarkable. The lungs are clear. No evidence of pleural effusion or pneumothorax. IMPRESSION: No acute chest disease. ACT 112: Negative or not required by law. Electronically signed by: Ricky Chester M.D. 10/17/2023 1:19 PM Discharge Plan Visit Data Chief Complaint: Shortness of Breath/Dyspnea Stated Complaint: TROUBLE BREATHING AND CHEST PAINS, REF BY DOC ED Provider: Brian Tolbert Discharge Problem: Reactive airway disease, Cough, Wheezing, Acute bronchospasm Patient Disposition: Admitted As Inpatient Discharge Instructions Interventions: ED Discharge Assessment Last Done: 10/17/23 16:56 Discharge Problem: Reactive airway disease Qualifiers: Asthma severity: unspecified severity Asthma persistence: unspecified Asthma complication type: uncomplicated Qualified Code(s): J45.909 - Unspecified asthma, uncomplicated Cough Qualifiers: Cough type: unspecified Qualified Code(s): R05.9 - Cough, unspecified
[2023-10-17 13:59] LABS: Albumin Globulin Ratio 1.6 (0.9-2); Albumin Level 4.6 gm/dl (3.4-5.0); BUN Creatinine Ratio 20.2 (10-20); Bilirubin,Total 0.5 mg/dl (0.2-1.0); Creatinine Clr Calc Pharmacy 89.7 ml/min; Est GFR (Non-African American) 90.6 ml/min; Globulin 2.9 gm/dl (2.5-4.0); Potassium 4.2 mmol/L (3.5-5.1); Total Protein 7.5 gm/dl (6.0-8.3)
[2023-10-17 14:05] LABS: Troponin I High Sensitivity 4.9 pg/ml (0-20)
[2023-10-17 14:17] LABS: Partial Thromboplastin Time 29 Seconds (21-31); Prothrombin Time 11.1 Seconds (9.0-12.0)
[2023-10-17] MEDS: ALBUT/IPRATROP 3MG/0.5MG NEB 3 ML VIAL NEB ONE (14:21)
[2023-10-17] MEDS: dexAMETHasone**PF** 10 MG/ML VIAL IV ONE (14:22)
[2023-10-17 14:25] LABS: Base Excess VBG 4.7 mEq/L; HCO3 VBG 31 mmol/L; Oxygen Saturation VBG < 60.0 %; PCO2 VBG 53 mmHg (38-50); PO2 VBG 31 mmHg; pH VBG 7.38 (7.36-7.41)
[2023-10-17 14:35] LABS: Adenovirus PCR Not Detected (NotDetected); Bordetella parapertussis PCR Not Detected (NotDetected); Bordetella pertussis PCR Not Detected (NotDetected); Chlamydia pneumoniae PCR Not Detected (NotDetected); Coronavirus 229E PCR Not Detected (NotDetected); Coronavirus CoV-2 (COVID19)PCR Not Detected (NotDetected); Coronavirus HKU1 PCR Not Detected (NotDetected); Coronavirus NL63 PCR Not Detected (NotDetected); Coronavirus OC43PCR Not Detected (NotDetected); Human Metapneumovirus PCR Not Detected (NotDetected); Influenza A PCR Not Detected (NotDetected); Influenza B PCR Not Detected (NotDetected); Mycoplasma pneumoniae PCR Not Detected (NotDetected); Parainfluenza Virus 1 PCR Not Detected (NotDetected); Parainfluenza Virus 2 PCR Not Detected (NotDetected); Parainfluenza Virus 3 PCR Not Detected (NotDetected); Parainfluenza Virus 4 PCR Not Detected (NotDetected); Respiratory Syncytial VirusPCR Not Detected (NotDetected); Rhinovirus/Enterovirus PCR Not Detected (NotDetected)
--- NOTE | 2023-10-17 14:48 | History & Physical Report ---
Date of Service October 17, 2023 Assessment & Plan (1) Reactive airway disease: Plan: -Admit to med/tele on continuous pulse oximetry -Currently stable on RA, in no respiratory distress at rest, and non-toxic appearing -Presented to the ED from the [facility] Pulmonology clinic due to concerns for undiagnosed eosinophilic asthma with acute exacerbation -On exam the patient has significant wheezing on lung exam but is without stridor or upper airway comprise -Spoke to the Pulmonology Clinic team, appreciate their help, they would treat as an asthma exacerbation for now -S/P 10 mg IV dexamethasone and an hour long albuterol neb in the ED -Will give an additional 60 mg IV solu-medrol this afternoon, continue with 40 mg IV TID tomorrow -Will give 1gm IV mag sulfate now -Will give 10 mg PO Guaifenesin/Codeine now then continue with 5 mg PO q6h scheduled for his cough and rib pain -Start QIDr DuoNebs, incentive spirometry, flutter therapy -PRN O2 to keep SpO2 at or above 94% -Pulmonology consult placed - SCD's for DVT PPX - diet -AM CBC, BMP, mag (2) Chest pain: Plan: -Patient developed acute onset of right lower rib pain while coughing approximately 48 hours ago -Rib pain is significantly reproducible on exam, no acute trauma noted on inspection and palpation -High sen trop, ECG, and D-Dimer are WNL, low suspicion for PE or ACS at this time -Review of his CXR in the ED seems to show a small rib fracture on the anterior aspect of the right 10th or 11th rib >This is exactly where his pain is -Will obtain dedicated rib xrays for confirmation -Continue Codeine/Guaifenesin, will give 1000 mg PO tylenol now then continue 650 mg q6h, lidocaine patch -If the patient is alert after receiving Codeine/Guaifenesin and rib pain is not controlled, will order additional analgesia -Continue to monitor on tele and pulse oximetry (3) Cough: Plan: -See reactive airway disease (4) HTN (hypertension): Plan: -Stable -Continue to monitor -Not on home antihypertensives Plan The patient was discussed with Dr. Andre at the time of the admission History of Present Illness Chief Complaint: Sent in from Pulm Clinic for admission due to asthma exacerbation Primary Care Provider: MD Yury Jay is a 68 year old male with a PMH significant for history of myocardial infarction at 41 years old who had previously been cleared by cardiology in the outpatient setting, and prior hospitalization in 2019 related to COVID-19 infection who was sent to the [facility] ED from the [facility] Pulmonology office due to concerns for significant bronchospasms on exam and right sided pleuritic chest pain. On arrival to the ED the patient was noted to hypertensive at 178/88 but otherwise stable. Labs were significant for eosinophilia of 0.86, VBG pCO2 of 53 but stable pH and PO2, unremarkable CMP and full respiratory biof fani negative. Chest xray was read as "negative for acute findings. ECG shows NSR without acute ST segment or T-wave changes. Prior to admission the patient was given an hour long DuoNeb treatment and 10 mg IV dexamethasone. At the time of the exam the patient was sitting in bed with a persistent cough and audible wheezing without stridor. History was obtained from the patient and his who is bedside. He states that his respiratory issues initially started with a 9 day Hospitalization for acute hypoxic respiratory failure due to Covid 19 Pneumonia in 2019. Since then he has had recurrent episodes of cough, wheezing, and SOB similar to his presentation today. He denies a previous hx of lung disease and denies previous tobacco abuse. He has required multiple courses of oral steroids due to his flares, his most recent course was a 5 day Prednisone taper which he completed on 10/12/23 without improvement in his symptoms. He has been using his albuterol inhaler 3-4 times daily without improvement and has been using the Anoro he was prescribed by his PCP. He denies recent fever, chills, hemoptysis, abd pain, nausea, vomiting, diarrhea, dysuria, hematuria, melena, bloody BM's, LE swelling, and recent trauma. Regarding his right lower chest pain, he states that two nights ago he was having a severe coughing fit. He had acute onset of right lower rib pain that felt like a pop. Since then he has had significant pain in the right lower ribs with movement, coughing, and palpation. His noted that the patient's sister tested positive for Factor V Leiden after having a large stroke. The patient was tested and was negative. He is a full code and would want his to make medical decisions for him if he cannot make them himself. He did have some relief after the hour long albuterol neb. Please refer to Dr. Fuller's attestation for any changes to the treatment plan Allergies Allergy/AdvReac Type Severity Reaction Status Date / Time diphenhydramine AdvReac Irritable Verified 10/10/23 09:54 [From [facility]] Home Medications Medication Instructions Recorded Confirmed Type aspirin 81 mg capsule 81 mg PO QAM 06/23/21 10/17/23 History multivitamin 2 tab PO QAM 06/23/21 10/17/23 History omeprazole 20 mg capsule,delayed 20 mg PO QAM 06/23/21 10/17/23 History release albuterol sulfate 90 mcg/actuation 2 puff inhalation Q6H PRN Wheezing 10/10/23 10/17/23 History aerosol inhaler paroxetine HCl 10 mg tablet (Paxil) 10 mg PO DAILY 10/10/23 10/17/23 History umeclidinium 62.5 mcg-vilanterol 1 inh inhalation DAILY 10/10/23 10/17/23 History 25 mcg/actuation powdr for inhalation (Anoro Ellipta) Past Med/Surg History Medical History History of skin cancer MULTIPLE SPOTS, FROZEN OFF IN 'S OFFICE Hx of migraines Myocardial Infarction AGE 41, TAKEN TO [facility]>NO CATH, PASSED STRESS TEST; F/U [facility] IN [place] FOR 2 YEARS History of COVID-19 2019, HOSPITALIZED AT [facility] FOR 9 DAYS; PNEUMONIA>"FEELS THOUGH IT HAS AFFECTED HIS BREATHING SOMEWHAT" Hx of renal calculi Biceps tendon rupture s/p repair Surgical History History of esophagogastroduodenoscopy (EGD) Hx of colonoscopy H/O umbilical hernia repair H/O inguinal hernia repair History of back surgery ; MOST RECENT TWICE IN 2021 Family History Father Heart disease Social History Smoking Status: Never smoker Second Hand Exposure: No; Do You Dip or Chew Tobacco: Yes (HX-QUIT YEARS AGO; ADVISED); Hx Alcohol Use: No Hx Substance Use: No Preferred Language: Khmer Communication Ability: Effective Regional Environmental Manager Required: No Beliefs That Will Affect Care: None marital status: Current Living Situation: Spouse Feels Safe at Home: Yes Assistive Devices: None Physical Exam Physical Exam: Physical Exam: General: In mild distress due to pain with coughing, stated age, well- nourished, non-toxic appearing HEENT: Normocephalic, atraumatic, no scleral icterus, pupils around round, symmetrical, and reactive to light, moist mucus membranes, trachea midline, no thyromegaly Chest/Pulm: No respiratory distress, symmetrical chest expansion, significant wheezing throughout, no stridor Cardiac: RRR, no murmurs noted Abdomen: Negative for ascites and bruising, normoactive bowel sounds, soft, non-tender to palpation throughout Musculoskeletal: Patient with significant pain to palpation over the right 10-12th ribs, no step off or acute trauma noted on inspection or palpation Extremities: Radial, dorsalis pedis, and posterior tibial pulses are intact and symmetrical, no edema noted in the BL LE's Skin: Warm, dry, no rashes , lesions, or scars noted Neuro: Alert and oriented to person, place, month, year, and president, no focal defects, no tremors noted Psych: Mild distress, polite, calm and cooperative during the exam Results & Data Results & Data Vital Signs (Past 12 Hours) Vital Signs Temp Pulse Resp BP Pulse Ox O2 Del Method 10/17/23 10:53 36.7 C 68 18 178/88 H 96 Room Air Laboratory Results Abnormal lab results 10/17/23 10/17/23 Range/Units 13:16 14:19 MPV 9.0 L (9.4-12.4) fL [place] # (Auto) 0.63 H (0.11-0.59) K/uL Eos # (Auto) 0.86 H (0.00-0.50) K/uL VBG pCO2 53 H (38-50) mmHg BUN/Creatinine Ratio 20.2 H (10-20) Glucose 110 H (70-99(Fasting)) mg/dl Diagnostic Findings Chest X-Ray 10/17/23 10:57 XR chest 1V not portable CLINICAL HISTORY: Chest pain, nonspecific TECHNIQUE: Single frontal radiograph of the chest was obtained. Comparison: Comparison is made to chest radiograph 06/23/2021 FINDINGS: No lines and tubes are seen. The aorta is tortuous. The remainder of the cardiomediastinal silhouette is unremarkable. The lungs are clear. No evidence of pleural effusion or pneumothorax. IMPRESSION: No acute chest disease. ACT 112: Negative or not required by law. Electronically signed by: Ricky Chester M.D. 10/17/2023 1:19 PM ECG Additional Comments: Normal sinus rhythm Left axis deviation Abnormal ECG When compared with ECG of 23-JUN-2021 13:46, No significant change was found Code Status & VTE Plan Code Status Full code VTE Prophylaxis Plan VTE Prophylaxis will be ordered: Yes Supervising Physician Co-Signing Physician Notes I have personally seen, evaluated and examined the patient. I have also personally discussed the management of the patient with the resident physician/RENEA and I agree with the exam findings documented in the history and physical examination and the documented assessment and plan unless otherwise stated below. Brief Exam: In general pleasant 68-year-old male accompanied by his at the time of my examination he is alert and oriented x 3 at time my exam. He is in moderate distress with his right-sided rib pain. I do suspect he has an acute fractured rib on that side rib x-rays have been ordered. He does have shortness of breath with cough. HEENT normocephalic/atraumatic. Heart: Regular rate and rhythm no murmur or ectopy. Lungs extraordinarily coarse bilaterally with diffuse expiratory and inspiratory wheezing. Pain with palpation in the right lateral lower ribs. Abdomen: Soft nontender positive bowel sounds. Extremities: Intact no clubbing cyanosis or edema. Neurologically he is alert and oriented x 3 intact with no focal deficit. Assessment/plan: As described above. Please refer to orders for further planning PG Care Time/CCT Total # of Minutes Spent Total Time Spent with Patient: Total time spent is greater than 50% in coordination of care (as documented) at patient's floor/unit and/or counseling patient: [place] [address] INT INP/OBS CARE 3/75MIN Patient Type New Medical Decision Making High Complexity Diagnoses Reactive airway disease J45.909 Chest pain R07.9 Cough R05.9 HTN (hypertension) I10
[2023-10-17] MEDS: guaiFENesin/CODEINE 100MG/10MG 5ML UDC PO STA (15:15)
[2023-10-17 15:28] LABS: Magnesium 2.1 mg/dl (1.7-2.4)
[2023-10-17 15:31] LABS: D Dimer 340 ug/L FEU (0-500)
[2023-10-17] MEDS: ACETAMINOPHEN 500 MG TAB PO STA (16:01)
[2023-10-17] MEDS: LIDOCAINE 5% 1 PATCH TD STA (16:03)
[2023-10-17] MEDS: MAGNESIUM SULFATE / D5W 1 GM/100 ML BAG IV ONE (16:04)
[2023-10-17] MEDS: methylPREDNISolone 125 MG/2 ML VIAL IV ONE (16:08)
--- NOTE | 2023-10-17 16:08 | Electrocardiogram Report ---
Test Reason : Blood Pressure : / mmHG Vent. Rate : 065 BPM Atrial Rate : 065 BPM P-R Int : 184 ms QRS Dur : 098 ms QT Int : 426 ms P-R-T Axes : 000 -36 038 degrees QTc Int : 443 ms Normal sinus rhythm Left anterior fascicular block Abnormal ECG When compared with ECG of 23-JUN-2021 13:46, No significant change was found Confirmed by Dustin Riddle ([id number]) on 10/17/2023 4:07:43 PM Referred By: Hector Simental Confirmed By:Dustin Riddle
--- NOTE | 2023-10-17 16:39 | XRay Report ---
XR ribs RT min 2V w CXR1V HISTORY: 68 years-old Male ? Fx rib/pain acute right-sided rib pain status post fall COMPARISON: 10/17/2023 TECHNIQUE: PA view chest with 4 views of the right ribs FINDINGS: Cardiac silhouette is mildly enlarged. No pneumothorax, pleural effusion or airspace consolidation. D egenerative changes of the shoulders and spine. No acute displaced rib fracture identified. IMPRESSION: 1. No acute process of the chest. 2. No acute displaced rib fracture or pneumothorax identified. ACT 112: Negative or not required by law. The above report was generated using voice recognition software. It may contain grammatical, syntax o r spelling errors. Electronically signed by: Gabino Judge M.D. 10/17/2023 4:38 PM
[2023-10-17] MEDS: ALBUT/IPRATROP 3MG/0.5MG NEB 3 ML VIAL NEB SCH (20:39)
[2023-10-17] MEDS: FLUTICASONE/VILANTEROL 200/25MCG 14 PUFFS/INHALER INH SCH (21:06)
[2023-10-17] MEDS: guaiFENesin/CODEINE 100MG/10MG 5ML UDC PO SCH (21:07)
[2023-10-17] MEDS: ACETAMINOPHEN 325 MG TAB PO SCH (21:07)
[2023-10-18] MEDS: PARoxetine HCL 10 MG TAB PO SCH (01:08)
[2023-10-18 04:39] LABS: Hematocrit (blood only) 44.5 % (42.0-52.0); Hemoglobin 15.2 g/dl (14.0-18.0); Mean Corpuscular Hemoglobin 30.9 pg (25.0-34.0); Mean Corpuscular Hgb Conc 34.2 g/dL (32.0-36.0); Mean Corpuscular Volume 90.4 fL (80.0-100.0); Platelet Count 248 K/uL (130-400); RDW Coefficient of Variation 12.6 % (11.5-14.5); RDW Standard Deviation 41.2 fL (36.4-46.3); Red Blood Count 4.92 M/uL (4.70-6.10); White Blood Count 10.96 K/ul (4.8-10.8)
[2023-10-18 04:47] LABS: BUN Creatinine Ratio 17.4 (10-20); Calcium 8.8 mg/dl (8.6-10.3); Creatinine Clr Calc Pharmacy 87.6 ml/min; Est GFR (Non-African American) 89.7 ml/min; Magnesium 2.2 mg/dl (1.7-2.4); Potassium 4.2 mmol/L (3.5-5.1)
[2023-10-18 05:11] LABS: Basophils # (auto) 0.03 K/uL (0.00-0.20); Basophils % (auto) 0.3 %; Immature Granulocytes # (auto) 0.05 K/uL (0.01-0.20); Immature Granulocytes % (auto) 0.5 %; Lymphocytes # (auto) 0.65 K/uL (1.20-3.40); Lymphocytes % (auto) 5.9 %; Monocytes # (auto) 0.08 K/uL (0.11-0.59); Monocytes % (auto) 0.7 %; Neutrophils # (auto) 10.15 K/uL (1.40-6.50); Neutrophils % (auto) 92.6 %
--- NOTE | 2023-10-18 08:44 | Hospitalist Progress Note ---
Date of Service October 18, 2023 Assessment & Plan (1) Reactive airway disease: Plan: -Admit to med/tele on continuous pulse oximetry -Currently stable on RA, in no respiratory distress at rest, and non-toxic appearing -Presented to the ED [place] [facility] [place] due to concerns for undiagnosed eosinophilic asthma with acute exacerbation -On exam the patient has significant wheezing on lung exam but is without stridor or upper airway comprise -Spoke to the Pulmonology Clinic team, appreciate their help, they would treat as an asthma exacerbation for now -S/P 10 mg IV dexamethasone and an hour long albuterol neb in the ED -Will give an additional 60 mg IV solu-medrol this afternoon, continue with 40 mg IV TID tomorrow -Will give 1gm IV mag sulfate now -Will give 10 mg PO Guaifenesin/Codeine now then continue with 5 mg PO q6h scheduled for his cough and rib pain -Start QIDr DuoNebs, incentive spirometry, flutter therapy -PRN O2 to keep SpO2 at or above 94% -Pulmonology consult placed - SCD's for DVT PPX - diet -AM CBC, BMP, mag 10/17 - changed cough syrup to prn so available when needing. pain w/ coughing, reordered lidocaine patch daily - appreciate pulm consultation (2) Chest pain: Plan: -Patient developed acute onset of right lower rib pain while coughing approximately 48 hours ago. Ddimer 340, not elevated -Rib pain is significantly reproducible on exam, no acute trauma noted on inspection and palpation -High sen trop, ECG, and D-Dimer are WNL, low suspicion for PE or ACS at this time -Review of his CXR in the ED seems to show a small rib fracture on the anterior aspect of the right 10th or 11th rib >This is exactly where his pain is -Will obtain dedicated rib xrays for confirmation -Continue Codeine/Guaifenesin, will give 1000 mg PO tylenol now then continue 650 mg q6h, lidocaine patch -If the patient is alert after receiving Codeine/Guaifenesin and rib pain is not controlled, will order additional analgesia -Continue to monitor on tele and pulse oximetry (3) Cough: Plan: -See reactive airway disease (4) HTN (hypertension): Plan: -Stable -Continue to monitor -Not on home antihypertensives Plan The patient was discussed with Dr. Andre at the time of the admission Admission and Anticipated Discharge Date Admission Date: October 17, 2023 Results & Data Results & Data Vital Signs (Past 12 Hours) Vital Signs Pulse Pulse Resp BP BP Pulse Ox O2 Del Method 10/18/23 07:09 82 10/18/23 05:03 Room Air 10/18/23 04:20 90 16 93 10/18/23 04:10 90 14 94 10/18/23 04:00 93 H 19 94 10/18/23 03:50 88 19 93 10/18/23 03:40 88 14 92 10/18/23 03:30 89 14 10/18/23 03:20 91 H 15 90 10/18/23 03:10 89 14 92 10/18/23 03:00 89 17 91 10/18/23 02:50 89 16 92 10/18/23 02:40 91 H 15 92 10/18/23 02:30 89 17 91 10/18/23 02:20 93 H 17 94 10/18/23 02:10 94 H 17 93 10/18/23 02:01 Nasal Cannula 10/18/23 02:00 93 H 17 92 10/18/23 01:40 94 H 19 93 10/18/23 01:30 92 H 17 94 10/18/23 01:20 90 17 93 10/18/23 01:10 92 H 14 94 10/18/23 01:00 94 H 19 95 10/18/23 00:50 91 H 19 94 10/18/23 00:41 114/71 10/18/23 00:41 93 H 20 10/18/23 00:41 94 H 18 114/71 93 Nasal Cannula 10/18/23 00:40 94 H 19 10/18/23 00:40 88 L Room Air 10/18/23 00:30 93 H 17 10/18/23 00:20 93 H 17 10/18/23 00:10 93 H 17 10/18/23 00:00 93 H 18 90 10/17/23 23:50 93 H 17 90 10/17/23 23:40 95 H 18 92 10/17/23 23:33 93 10/17/23 23:20 92 H 17 10/17/23 23:10 92 H 16 10/17/23 23:06 91 H 10/17/23 23:00 114 H 16 03/06/24 22:50 93 H 16 10/17/23 22:40 93 H 16 10/17/23 22:30 94 H 18 10/17/23 22:22 119/72 10/17/23 22:22 93 H 24 10/17/23 22:10 95 H 19 10/17/23 22:00 101 H 12 10/17/23 21:50 96 H 18 91 10/17/23 21:40 97 H 12 93 10/17/23 21:30 98 H 20 91 10/17/23 21:20 103 H 21 91 10/17/23 21:14 130/76 10/17/23 21:14 101 H 23 10/17/23 21:14 100 H 20 130/76 94 Room Air 10/17/23 21:10 100 H 21 10/17/23 21:02 97 H 19 95 O2 Flow Rate 10/18/23 07:09 10/18/23 05:03 10/18/23 04:20 10/18/23 04:10 10/18/23 04:00 10/18/23 03:50 10/18/23 03:40 10/18/23 03:30 10/18/23 03:20 10/18/23 03:10 10/18/23 03:00 10/18/23 02:50 10/18/23 02:40 10/18/23 02:30 10/18/23 02:20 10/18/23 02:10 10/18/23 02:01 2 10/18/23 02:00 10/18/23 01:40 10/18/23 01:30 10/18/23 01:20 10/18/23 01:10 10/18/23 01:00 10/18/23 00:50 10/18/23 00:41 10/18/23 00:41 10/18/23 00:41 2 10/18/23 00:40 10/18/23 00:40 10/18/23 00:30 10/18/23 00:20 10/18/23 00:10 10/18/23 00:00 10/17/23 23:50 10/17/23 23:40 10/17/23 23:33 10/17/23 23:20 10/17/23 23:10 10/17/23 23:06 10/17/23 23:00 10/17/23 22:50 10/17/23 22:40 10/17/23 22:30 10/17/23 22:22 10/17/23 22:22 10/17/23 22:10 10/17/23 22:00 10/17/23 21:50 10/17/23 21:40 10/17/23 21:30 10/17/23 21:20 10/17/23 21:14 10/17/23 21:14 10/17/23 21:14 10/17/23 21:10 10/17/23 21:02 Laboratory Results 10/18/23 10/17/23 10/17/23 Range/Units 04:00 14:19 13:16 WBC 10.96 H 7.53 (4.8-10.8) K/ul RBC 4.92 5.11 (4.70-6.10) M/uL Hgb 15.2 15.8 (14.0-18.0) g/dl Hct 44.5 46.7 (42.0-52.0) % MCV 90.4 91.4 (80.0-100.0) fL MCH 30.9 30.9 (25.0-34.0) pg MCHC 34.2 33.8 (32.0-36.0) g/dL RDW Std Deviation 41.2 42.3 (36.4-46.3) fL RDW Coeff of Gerald 12.6 12.7 (11.5-14.5) % Plt Count 248 256 (130-400) K/uL MPV 9.0 L 9.0 L (9.4-12.4) fL Immature Gran % (Auto) 0.5 0.3 % Neut % (Auto) 92.6 62.5 % Lymph % (Auto) 5.9 16.6 % [place] % (Auto) 0.7 8.4 % Eos % (Auto) 0.0 11.4 % Baso % (Auto) 0.3 0.8 % Neut # (Auto) 10.15 H 4.71 (1.40-6.50) K/uL Lymph # (Auto) 0.65 L 1.25 (1.20-3.40) K/uL [place] # (Auto) 0.08 L 0.63 H (0.11-0.59) K/uL Eos # (Auto) 0.00 0.86 H (0.00-0.50) K/uL Baso # (Auto) 0.03 0.06 (0.00-0.20) K/uL Immature Gran # (Auto) 0.05 0.02 (0.01-0.20) K/uL PT 11.1 (9.0-12.0) Seconds INR 1.0 (0.9-1.1) APTT 29 (21-31) Seconds PTT Ratio 1.0 D-Dimer 340 (0-500) ug/L FEU VBG pH 7.38 (7.36-7.41) VBG pCO2 53 H (38-50) mmHg VBG pO2 31 mmHg VBG HCO3 31 mmol/L VBG O2 Saturation < 60.0 % VBG Base Excess 4.7 mEq/L Sodium 137 138 (136-145) mmol/L Potassium 4.2 4.2 (3.5-5.1) mmol/L Chloride 103 104 (98-107) mmol/L Carbon Dioxide 25 28 (21-32) mmol/L Anion Gap 9 6 (3-11) BUN 15 17 (6-23) mg/dl Creatinine 0.86 0.84 (0.6-1.4) mg/dl Est Cr Clr Drug Dosing 87.6 89.7 ml/min Est GFR ( Amer) 104.0 105.0 ml/min Est GFR (Non-Af Amer) 89.7 90.6 ml/min BUN/Creatinine Ratio 17.4 20.2 H (10-20) Glucose 160 H 110 H (70-99(Fasting)) mg/dl Calcium 8.8 9.0 (8.6-10.3) mg/dl Magnesium 2.2 2.1 (1.7-2.4) mg/dl Total Bilirubin 0.5 (0.2-1.0) mg/dl AST 30 (13-39) U/L ALT 32 (7-52) U/L Alkaline Phosphatase 47 (34-104) U/L Troponin I High Sens 4.9 (0-20) pg/ml B-Natriuretic Peptide 14 (0-100) pg/ml Total Protein 7.5 (6.0-8.3) gm/dl Albumin 4.6 (3.4-5.0) gm/dl Globulin 2.9 (2.5-4.0) gm/dl Albumin/Globulin Ratio 1.6 (0.9-2) Adenovirus (PCR) (NotDetected) B. pertussis DNA (PCR) (NotDetected) B.parapertussis DNA PCR (NotDetected) C. pneumoniae DNA (PCR) (NotDetected) Coronavirus OC43 (PCR) (NotDetected) Coronavirus HKU1 (PCR) (NotDetected) Coronavirus 229E (PCR) (NotDetected) SARS-CoV-2 (PCR) (NotDetected) Coronavirus NL63 (PCR) (NotDetected) Human Metapneumovir PCR (NotDetected) Influenza Type A (PCR) (NotDetected) Influenza Type B (PCR) (NotDetected) M. pneumoniae (PCR) (NotDetected) Parainfluenza 1 (PCR) (NotDetected) Parainfluenza 2 (PCR) (NotDetected) Parainfluenza 3 (PCR) (NotDetected) Parainfluenza 4 (PCR) (NotDetected) RSV (PCR) (NotDetected) Entero/Rhino (PCR) (NotDetected) 10/17/23 Range/Units 13:15 WBC (4.8-10.8) K/ul RBC (4.70-6.10) M/uL Hgb (14.0-18.0) g/dl Hct (42.0-52.0) % MCV (80.0-100.0) fL MCH (25.0-34.0) pg MCHC (32.0-36.0) g/dL RDW Std Deviation (36.4-46.3) fL RDW Coeff of Gerald (11.5-14.5) % Plt Count (130-400) K/uL MPV (9.4-12.4) fL Immature Gran % (Auto) % Neut % (Auto) % Lymph % (Auto) % [place] % (Auto) % Eos % (Auto) % Baso % (Auto) % Neut # (Auto) (1.40-6.50) K/uL Lymph # (Auto) (1.20-3.40) K/uL [place] # (Auto) (0.11-0.59) K/uL Eos # (Auto) (0.00-0.50) K/uL Baso # (Auto) (0.00-0.20) K/uL Immature Gran # (Auto) (0.01-0.20) K/uL PT (9.0-12.0) Seconds INR (0.9-1.1) APTT (21-31) Seconds PTT Ratio D-Dimer (0-500) ug/L FEU VBG pH (7.36-7.41) VBG pCO2 (38-50) mmHg VBG pO2 mmHg VBG HCO3 mmol/L VBG O2 Saturation % VBG Base Excess mEq/L Sodium (136-145) mmol/L Potassium (3.5-5.1) mmol/L Chloride (98-107) mmol/L Carbon Dioxide (21-32) mmol/L Anion Gap (3-11) BUN (6-23) mg/dl Creatinine (0.6-1.4) mg/dl Est Cr Clr Drug Dosing ml/min Est GFR ( Amer) ml/min Est GFR (Non-Af Amer) ml/min BUN/Creatinine Ratio (10-20) Glucose (70-99(Fasting)) mg/dl Calcium (8.6-10.3) mg/dl Magnesium (1.7-2.4) mg/dl Total Bilirubin (0.2-1.0) mg/dl AST (13-39) U/L ALT (7-52) U/L Alkaline Phosphatase (34-104) U/L Troponin I High Sens (0-20) pg/ml B-Natriuretic Peptide (0-100) pg/ml Total Protein (6.0-8.3) gm/dl Albumin (3.4-5.0) gm/dl Globulin (2.5-4.0) gm/dl Albumin/Globulin Ratio (0.9-2) Adenovirus (PCR) Not Detected (NotDetected) B. pertussis DNA (PCR) Not Detected (NotDetected) B.parapertussis DNA PCR Not Detected (NotDetected) C. pneumoniae DNA (PCR) Not Detected (NotDetected) Coronavirus OC43 (PCR) Not Detected (NotDetected) Coronavirus HKU1 (PCR) Not Detected (NotDetected) Coronavirus 229E (PCR) Not Detected (NotDetected) SARS-CoV-2 (PCR) Not Detected (NotDetected) Coronavirus NL63 (PCR) Not Detected (NotDetected) Human Metapneumovir PCR Not Detected (NotDetected) Influenza Type A (PCR) Not Detected (NotDetected) Influenza Type B (PCR) Not Detected (NotDetected) M. pneumoniae (PCR) Not Detected (NotDetected) Parainfluenza 1 (PCR) Not Detected (NotDetected) Parainfluenza 2 (PCR) Not Detected (NotDetected) Parainfluenza 3 (PCR) Not Detected (NotDetected) Parainfluenza 4 (PCR) Not Detected (NotDetected) RSV (PCR) Not Detected (NotDetected) Entero/Rhino (PCR) Not Detected (NotDetected) Diagnostic Findings Chest X-Ray 10/17/23 10:57 XR chest 1V not portable CLINICAL HISTORY: Chest pain, nonspecific TECHNIQUE: Single frontal radiograph of the chest was obtained. Comparison: Comparison is made to chest radiograph 06/23/2021 FINDINGS: No lines and tubes are seen. The aorta is tortuous. The remainder of the cardiomediastinal silhouette is unremarkable. The lungs are clear. No evidence of pleural effusion or pneumothorax. IMPRESSION: No acute chest disease. ACT 112: Negative or not required by law. Electronically signed by: Ricky Chester M.D. 10/17/2023 1:19 PM Ribs w/Chest X-Ray 10/17/23 15:40 XR ribs RT min 2V w CXR1V HISTORY: 68 years-old Male ? Fx rib/pain acute right-sided rib pain status post fall COMPARISON: 10/17/2023 TECHNIQUE: PA view chest with 4 views of the right ribs FINDINGS: Cardiac silhouette is mildly enlarged. No pneumothorax, pleural effusion or airspace consolidation. Degenerative changes of the shoulders and spine. No acute displaced rib fracture identified. IMPRESSION: 1. No acute process of the chest. 2. No acute displaced rib fracture or pneumothorax identified. ACT 112: Negative or not required by law. The above report was generated using voice recognition software. It may contain grammatical, syntax or spelling errors. Electronically signed by: Gabino Judge M.D. 10/17/2023 4:38 PM PG Care Time/CCT Total # of Minutes Spent Total Time Spent with Patient: Total time spent is greater than 50% in coordination of care (as documented) at patient's floor/unit and/or counseling patient: Coding Diagnoses Reactive airway disease J45.909 Asthma complication type: uncomplicated Asthma persistence: unspecified Asthma severity: unspecified severity Chest pain R07.9 Cough R05.9 Cough type: unspecified HTN (hypertension) I10 (1) Reactive airway disease Asthma complication type: uncomplicated Asthma persistence: unspecified Asthma severity: unspecified severity Qualified Code(s): J45.909 - Unspecified asthma, uncomplicated (3) Cough Cough type: unspecified Qualified Code(s): R05.9 - Cough, unspecified
[2023-10-18] MEDS ORDERED: oxyCODONE HCL IR 5 MG TAB (IMMEDIATE RELEASE) PO PRN (08:48)
[2023-10-18] MEDS: PANTOprazole 40 MG TAB PO SCH (08:52)
[2023-10-18] MEDS: ASPIRIN 81 MG ECTAB PO SCH (08:52)
[2023-10-18] MEDS: methylPREDNISolone 40 MG in SYRINGE 0 ML IV SCH (08:53)
[2023-10-18] MEDS: LIDOCAINE 5% 1 PATCH TD SCH (08:55)
[2023-10-18] MEDS ORDERED: PARoxetine HCL 10 MG TAB PO SCH (09:00)
--- NOTE | 2023-10-18 10:38 | Pulmonary Consultation ---
Date of Consultation October 18, 2023 Assessment & Plan (1) Wheezing: (2) Cough: Cough type: unspecified Qualified Code(s): R05.9 - Cough, unspecified (3) Closed rib fracture: Plan Impression: 68-year-old male with likely asthmatic bronchitis improved clinically. He has a rib fracture with significant pain. He is not requiring supplemental oxygen and has been hemodynamically stable and can likely be managed in the outpatient setting. Recommendations: 1. Rib fracture: Continue supportive care. Lidoderm patches and pain management as needed. Will provide 1 shot of Toradol now 2. Pulmonary nodule: Patient's outside CT scan demonstrated a 5 mm right upper lobe nodule adjacent to the fissure. Unclear if this represents an IPN. Follow-up CT scan in 6 months is recommended. No indication for repeating a scan now 3. Wheezing and coughing with exhaled nitric oxide elevated: Patient should complete formal pulmonary function test in the outpatient setting. At this point, transition to oral prednisone. Continue therapy with Breo and add Anoro. Can use as needed DuoNebs. Patient does not require ongoing telemetry Patient appears stable at this point in time consider dismissal from the hospital and outpatient follow-up. Recommend he follow-up with the PA in the pulmonary clinic in 2 to 3 weeks. The above recommendations and plan were discussed with the patient. Pulmonary will sign off. Feel free to contact us with questions or concerns History of Present Illness Attending Physician: Dallas Kunz MD History of Present Illness Patient seen and examined. EMR reviewed. Discussed with patient as well as with pulmonary RENEA. Patient is a 68-year-old male who was directly admitted to the pulmonary clinic yesterday. He was referred for evaluation of shortness of breath and wheezing. Exhaled nitric oxide was significantly elevated. Likely has asthma/COPD. In the emergency room he was also found to have nondisplaced rib fracture. He is having significant pain. He is much better today. Allergies Allergy/AdvReac Type Severity Reaction Status Date / Time diphenhydramine AdvReac Irritable Verified 10/10/23 09:54 [From Benadryl] Home Medications Medication Instructions Recorded Confirmed Type aspirin 81 mg capsule 81 mg PO QAM 06/23/21 10/17/23 History multivitamin 2 tab PO QAM 06/23/21 10/17/23 History omeprazole 20 mg capsule,delayed 20 mg PO QAM 06/23/21 10/17/23 History release albuterol sulfate 90 mcg/actuation 2 puff inhalation Q6H PRN Wheezing 10/10/23 10/17/23 History aerosol inhaler paroxetine HCl 10 mg tablet (Paxil) 10 mg PO DAILY 10/10/23 10/17/23 History umeclidinium 62.5 mcg-vilanterol 1 inh inhalation DAILY 10/10/23 10/17/23 History 25 mcg/actuation powdr for inhalation (Anoro Ellipta) Patient History Medical History History of skin cancer MULTIPLE SPOTS, FROZEN OFF IN 'S OFFICE Hx of migraines Myocardial Infarction AGE 41, TAKEN TO [facility]>NO CATH, PASSED STRESS TEST; F/U [facility] [place] FOR 2 YEARS History of COVID-19 2019, HOSPITALIZED AT [facility] FOR 9 DAYS; PNEUMONIA>"FEELS THOUGH IT HAS AFFECTED HIS BREATHING SOMEWHAT" Hx of renal calculi Biceps tendon rupture s/p repair Surgical History History of esophagogastroduodenoscopy (EGD) Hx of colonoscopy H/O umbilical hernia repair H/O inguinal hernia repair History of back surgery ; MOST RECENT TWICE IN 2021 Family History Father Heart disease Social History Smoking Status: Never smoker Second Hand Exposure: No; Do You Dip or Chew Tobacco: Yes (HX-QUIT YEARS AGO; ADVISED); Hx Alcohol Use: No Hx Substance Use: No Preferred Language: Belarusian Communication Ability: Effective Therapy Site Coordinator Required: No Beliefs That Will Affect Care: None marital status: Current Living Situation: Spouse Other Information That Helps Us Care for You: No Feels Safe at Home: Yes Safety Concerns: Feels Safe At This Time Assistive Devices: Glasses Review of Systems Review of Systems: Please refer to admission H&P. No additions or deletions Physical Exam Constitutional: WD/WN, vitals as above Neck: trachea midline, no thyromegaly Respiratory: + cough; no respiratory distress, no lab ored breathing and not tachypneic Auscultation: + wheezes; no crackles and no rhonchi Cardiovascular: RRR, no murmur, no edema Gastrointestinal (Abdomen): normal bowel sounds, soft, nontender, no hepatosplenomegaly Musculoskeletal: Extremities: extremities normal to inspection Skin: no rashes, warm and dry Neurologic: Nonfocal exam Lymphatic: no cervical lymphadenopathy Results & Data Results & Data Vital Signs (Past 12 Hours) Vital Signs Pulse Pulse Resp BP BP Pulse Ox O2 Del Method 10/18/23 07:09 82 10/18/23 05:03 Room Air 10/18/23 04:20 90 16 93 10/18/23 04:10 90 14 94 10/18/23 04:00 93 H 19 94 10/18/23 03:50 88 19 93 10/18/23 03:40 88 14 92 10/18/23 03:30 89 14 10/18/23 03:20 91 H 15 90 10/18/23 03:10 89 14 92 10/18/23 03:00 89 17 91 10/18/23 02:50 89 16 92 10/18/23 02:40 91 H 15 92 10/18/23 02:30 89 17 91 10/18/23 02:20 93 H 17 94 10/18/23 02:10 94 H 17 93 10/18/23 02:01 Nasal Cannula 10/18/23 02:00 93 H 17 92 10/18/23 01:40 94 H 19 93 10/18/23 01:30 92 H 17 94 10/18/23 01:20 90 17 93 10/18/23 01:10 92 H 14 94 10/18/23 01:00 94 H 19 95 10/18/23 00:50 91 H 19 94 10/18/23 00:41 114/71 10/18/23 00:41 93 H 20 10/18/23 00:41 94 H 18 114/71 93 Nasal Cannula 10/18/23 00:40 94 H 19 10/18/23 00:40 88 L Room Air 10/18/23 00:30 93 H 17 10/18/23 00:20 93 H 17 10/18/23 00:10 93 H 17 10/18/23 00:00 93 H 18 90 10/17/23 23:50 93 H 17 90 03/06/24 23:40 95 H 18 92 10/17/23 23:33 93 10/17/23 23:20 92 H 17 10/17/23 23:10 92 H 16 10/17/23 23:06 91 H 10/17/23 23:00 114 H 16 10/17/23 22:50 93 H 16 10/17/23 22:40 93 H 16 O2 Flow Rate 10/18/23 07:09 10/18/23 05:03 10/18/23 04:20 10/18/23 04:10 10/18/23 04:00 10/18/23 03:50 10/18/23 03:40 10/18/23 03:30 10/18/23 03:20 10/18/23 03:10 10/18/23 03:00 10/18/23 02:50 10/18/23 02:40 10/18/23 02:30 10/18/23 02:20 10/18/23 02:10 10/18/23 02:01 2 10/18/23 02:00 10/18/23 01:40 10/18/23 01:30 10/18/23 01:20 10/18/23 01:10 10/18/23 01:00 10/18/23 00:50 10/18/23 00:41 10/18/23 00:41 10/18/23 00:41 2 10/18/23 00:40 10/18/23 00:40 10/18/23 00:30 10/18/23 00:20 10/18/23 00:10 10/18/23 00:00 10/17/23 23:50 10/17/23 23:40 10/17/23 23:33 10/17/23 23:20 10/17/23 23:10 10/17/23 23:06 10/17/23 23:00 10/17/23 22:50 10/17/23 22:40 Critical Care Results & Data Vital Signs (Past 12 Hours) Vital Signs Pulse Pulse Resp BP BP Pulse Ox O2 Del Method 10/18/23 07:09 82 10/18/23 05:03 Room Air 10/18/23 04:20 90 16 93 10/18/23 04:10 90 14 94 10/18/23 04:00 93 H 19 94 10/18/23 03:50 88 19 93 10/18/23 03:40 88 14 92 10/18/23 03:30 89 14 10/18/23 03:20 91 H 15 90 10/18/23 03:10 89 14 92 10/18/23 03:00 89 17 91 10/18/23 02:50 89 16 92 10/18/23 02:40 91 H 15 92 10/18/23 02:30 89 17 91 10/18/23 02:20 93 H 17 94 10/18/23 02:10 94 H 17 93 10/18/23 02:01 Nasal Cannula 10/18/23 02:00 93 H 17 92 10/18/23 01:40 94 H 19 93 10/18/23 01:30 92 H 17 94 10/18/23 01:20 90 17 93 10/18/23 01:10 92 H 14 94 10/18/23 01:00 94 H 19 95 10/18/23 00:50 91 H 19 94 10/18/23 00:41 114/71 10/18/23 00:41 93 H 20 10/18/23 00:41 94 H 18 114/71 93 Nasal Cannula 10/18/23 00:40 94 H 19 10/18/23 00:40 88 L Room Air 10/18/23 00:30 93 H 17 10/18/23 00:20 93 H 17 10/18/23 00:10 93 H 17 10/18/23 00:00 93 H 18 90 10/17/23 23:50 93 H 17 90 10/17/23 23:40 95 H 18 92 10/17/23 23:33 93 10/17/23 23:20 92 H 17 10/17/23 23:10 92 H 16 10/17/23 23:06 91 H 10/17/23 23:00 114 H 16 10/17/23 22:50 93 H 16 10/17/23 22:40 93 H 16 O2 Flow Rate 10/18/23 07:09 10/18/23 05:03 10/18/23 04:20 10/18/23 04:10 10/18/23 04:00 10/18/23 03:50 10/18/23 03:40 10/18/23 03:30 10/18/23 03:20 10/18/23 03:10 10/18/23 03:00 10/18/23 02:50 10/18/23 02:40 10/18/23 02:30 10/18/23 02:20 10/18/23 02:10 10/18/23 02:01 2 10/18/23 02:00 10/18/23 01:40 10/18/23 01:30 10/18/23 01:20 10/18/23 01:10 10/18/23 01:00 10/18/23 00:50 10/18/23 00:41 10/18/23 00:41 10/18/23 00:41 2 10/18/23 00:40 10/18/23 00:40 10/18/23 00:30 10/18/23 00:20 10/18/23 00:10 10/18/23 00:00 10/17/23 23:50 10/17/23 23:40 10/17/23 23:33 10/17/23 23:20 10/17/23 23:10 10/17/23 23:06 10/17/23 23:00 10/17/23 22:50 10/17/23 22:40 Lab & Micro Results (Past 24 Hours) RBC 4.92 M/uL (4.70-6.10) 10/18/23 WBC 10.96 K/ul (4.8-10.8) H 10/18/23 Hgb 15.2 g/dl (14.0-18.0) 10/18/23 Hct 44.5 % (42.0-52.0) 10/18/23 MCV 90.4 fL (80.0-100.0) 10/18/23 MCH 30.9 pg (25.0-34.0) 10/18/23 MCHC 34.2 g/dL (32.0-36.0) 10/18/23 RDW Standard Deviation 41.2 fL (36.4-46.3) 10/18/23 RDW Coefficient of Variation 12.6 % (11.5-14.5) 10/18/23 Plt Count 248 K/uL (130-400) 10/18/23 MPV 9.0 fL (9.4-12.4) L 10/18/23 Neutrophils (%) (Auto) 92.6 % 10/18/23 Lymphocytes (%) (Auto) 5.9 % 10/18/23 Monocytes # (Auto) 0.08 K/uL (0.11-0.59) L 10/18/23 Eosinophils # (Auto) 0.00 K/uL (0.00-0.50) 10/18/23 Immature Granulocyte % (Auto) 0.5 % 10/18/23 Neutrophils # (Auto) 10.15 K/uL (1.40-6.50) H 10/18/23 Lymphocytes # (Auto) 0.65 K/uL (1.20-3.40) L 10/18/23 Monocytes # (Auto) 0.08 K/uL (0.11-0.59) L 10/18/23 Eosinophils # (Auto) 0.00 K/uL (0.00-0.50) 10/18/23 Basophils # (Auto) 0.03 K/uL (0.00-0.20) 10/18/23 Immature Granulocyte # (Auto) 0.05 K/uL (0.01-0.20) 4 Na 137 mmol/L (136-145) 10/18/23 K 4.2 mmol/L (3.5-5.1) 10/18/23 Cl 103 mmol/L (98-107) 10/18/23 CO2 25 mmol/L (21-32) 10/18/23 Anion Gap 9 (3-11) 10/18/23 BUN 15 mg/dl (6-23) 10/18/23 Creatinine 0.86 mg/dl (0.6-1.4) 10/18/23 Estimated GFR ( Amer) 104.0 ml/min 10/18/23 Estimated GFR (Non-Af Amer) 89.7 ml/min 10/18/23 BUN/Creatinine Ratio 17.4 (10-20) 10/18/23 Glu 160 mg/dl (70-99(Fasting)) H 10/18/23 Ca 8.8 mg/dl (8.6-10.3) 10/18/23 Total Bilirubin 0.5 mg/dl (0.2-1.0) 10/17/23 AST 30 U/L (13-39) 10/17/23 ALT 32 U/L (7-52) 10/17/23 Alkaline Phosphatase 47 U/L (34-104) 10/17/23 TP 7.5 gm/dl (6.0-8.3) 10/17/23 Albumin 4.6 gm/dl (3.4-5.0) 10/17/23 Globulin 2.9 gm/dl (2.5-4.0) 10/17/23 Albumin/Globulin Ratio 1.6 (0.9-2) 10/17/23 Mg 2.2 mg/dl (1.7-2.4) 10/18/23 04:00 Calcium Level 8.8 mg/dl (8.6-10.3) 10/18/23 04:00 Prothromb Time International Ratio 1.0 (0.9-1.1) 10/17/23 13:1 6 Venous Blood pH 7.38 (7.36-7.41) 10/17/23 14:19 Venous Blood Partial Pressure CO2 53 mmHg (38-50) H 10/17/23 14 :19 Venous Blood Partial Pressure O2 31 mmHg 10/17/23 14:19 Venous Blood HCO3 31 mmol/L 10/17/23 14:19 Venous Blood Base Excess 4.7 mEq/L 10/17/23 14:19 Venous Blood Oxygen Saturation < 60.0 % 10/17/23 14:19 Diagnostic Findings (Past 24 Hours) Chest X-Ray 10/17/23 10:57 XR chest 1V not portable CLINICAL HISTORY: Chest pain, nonspecific TECHNIQUE: Single frontal radiograph of the chest was obtained. Comparison: Comparison is made to chest radiograph 06/23/2021 FINDINGS: No lines and tubes are seen. The aorta is tortuous. The remainder of the cardiomediastinal silhouette is unremarkable. The lungs are clear. No evidence of pleural effusion or pneumothorax. IMPRESSION: No acute chest disease. ACT 112: Negative or not required by law. Electronically signed by: Ricky Chester M.D. 10/17/2023 1:19 PM Ribs w/Chest X-Ray 10/17/23 15:40 XR ribs RT min 2V w [id number] HISTORY: 68 years-old Male ? Fx rib/pain acute right-sided rib pain status post fall COMPARISON: 10/17/2023 TECHNIQUE: PA view chest with 4 views of the right ribs FINDINGS: Cardiac silhouette is mildly enlarged. No pneumothorax, pleural effusion or airspace consolidation. Degenerative changes of the shoulders and spine. No acute displaced rib fracture identified. IMPRESSION: 1. No acute process of the chest. 2. No acute displaced rib fracture or pneumothorax identified. ACT 112: Negative or not required by law. The above report was generated using voice recognition software. It may contain grammatical, syntax or spelling errors. Electronically signed by: Gabino Judge M.D. 10/17/2023 4:38 PM I & O Totals 24 Hours 10/17/23 10/18/23 10/19/23 06:59 06:59 06:59 Intake Total 100 / 100 Balance 100 / 100 Cumulative 10/17/23 10:35 thru 10/18/23 06:00 Intake Total 100 Balance 100 RT Ventilator Mngmt (Last Documented) Ventilator Ordered Settings Respiratory Rate 16 10/18/23 04:20 Ventilator - PT Measurements Respiratory Rate 16 PG Care Time/CCT Total # of Minutes Spent Total Time Spent with Patient: Total time spent is greater than 50% in coordination of care (as documented) at patient's floor/unit and/or counseling patient: Coding Level of Care Code 36376 INT INP/OBS CARE 2/55MIN Diagnoses Wheezing R06.2 Cough R05.9 Cough type: unspecified Closed rib fracture S22.39XA
[2023-10-18] MEDS: KETOROLAC TROMETHAMINE 15 MG/ML VIAL IV ONE (10:59)
[2023-10-18] MEDS: predniSONE 20 MG TAB PO SCH (10:59)
[2023-10-18] MEDS: ALBUT/IPRATROP 3MG/0.5MG NEB 3 ML VIAL NEB PRN (11:14)
[2023-10-18] MEDS: UMECLIDINIUM BROMIDE 62.5MCG/BLISTER 7 PUFFS/INHALER INH SCH (11:25)
--- NOTE | 2023-10-18 12:52 | Discharge Summary ---
Date of Service October 18, 2023 Admission HPI Per Admitting Provider Yury is a 68 year old male with a PMH significant for history of myocardial infarction at 41 years old who had previously been cleared by cardiology in the outpatient setting, and prior hospitalization in 2019 related to COVID-19 infection who was sent to the [facility] ED from the [facility] Pulmonology office due to concerns for significant bronchospasms on exam and right sided pleuritic chest pain. On arrival to the ED the patient was noted to hypertensive at 178/88 but otherwise stable. Labs were significant for eosinophilia of 0.86, VBG pCO2 of 53 but stable pH and PO2, unremarkable CMP and full respiratory biofire negative. Chest xray was read as "negative for acute findings. ECG shows NSR without acute ST segment or T-wave changes. Prior to admission the patient was given an hour long DuoNeb treatment and 10 mg IV dexamethasone. At the time of the exam the patient was sitting in bed with a persistent cough and audible wheezing without stridor. History was obtained from the patient and his who is bedside. He states that his respiratory issues initially started with a 9 day Hospitalization for acute hypoxic respiratory failure due to Covid 19 Pneumonia in 2019. Since then he has had recurrent epis odes of cough, wheezing, and SOB similar to his presentation today. He denies a previous hx of lung disease and denies previous tobacco abuse. He has required multiple courses of oral steroids due to his flares, his most recent course was a 5 day Prednisone taper which he completed on 10/12/23 without improvement in his symptoms. He has been using his albuterol inhaler 3-4 times daily without improv ement and has been using the Anoro he was prescribed by his PCP. He denies recent fever, chills, hemoptysis, abd pain, nausea, vomiting, diarrhea, dysuria, hematuria, melena, bloody BM's, LE swelling, and recent trauma. Regarding his right lower chest pain, he states that two nights ago he was having a severe coughing fit. He had acute onset of right lower rib pain that felt like a pop. Since then he has had significant pain in the right lower ribs with movement, coughing, and palpation. His noted that the patient's sister tested positive for Factor V Leiden after having a large stroke. The patient was tested and was negative. He is a full code and would want his to make medical decisions for him if he cannot make them himself. He did have some relief after the hour long albuterol neb. Please refer to Dr. Fuller's attestation for any changes to the treatment plan Admission Exam Per Admitting Provider Physical Exam: General: In mild distress due to pain with coughing, stated age, well-nourished, non-toxic appearing HEENT: Normocephalic, atraumatic, no scleral icterus, pupils around round, symmetrical, and reactive to light, moist mucus membranes, trachea midline, no thyromegaly Chest/Pulm: No respiratory distress, symmetrical chest expansion, significant wheezing throughout, no stridor Cardiac: RRR, no murmurs noted Abdomen: Negative for ascites and bruising, normoactive bowel sounds, soft, non- tender to palpation throughout Musculoskeletal: Patient with significant pain to palpation over the right 10- 12th ribs, no step off or acute trauma noted on inspection or palpation Extremities: Radial, dorsalis pedis, and posterior tibial pulses are intact and symmetrical, no edema noted in the BL LE's Skin: Warm, dry, no rashes , lesions, or scars noted Neuro: Alert and oriented to person, place, month, year, and president, no focal defects, no tremors noted Psych: Mild distress, polite, calm and cooperative during the exam Principal Diagnosis Asthma Exacerbation, Broken Rib Discharge Exam General: 68yo male sitting up in chair, NAD but occasional cough/pain to R ribs when coughing HEENT: head atraumatic, normocephalic, mmm, trachea midline Resp: +cough, no tachypnea, faint end expiratory wheezing (improved with cough), 96% on RA +tenderness to RIGHT chest in region of 10/11th ribs, lidocaine patch in place CV: RRR, no significant m/r/g, no pitting edema/calf tenderness GI: +BS, slight distension but nontender MSK/Neuro: nonfocal, no slurred speech/facial droop, answering questions appropriately Psych: AOx3, cooperative with exam, wanting a cheeseburger/to go home Discharge Data Allergies Allergy/AdvReac Type Severity Reaction Status Date / Time diphenhydramine AdvReac Irritable Verified 10/10/23 09:54 [From Benadryl] Consultations 10/17/23 14:28 ED Decision to Admit Stat 10/17/23 15:28 Consult Pulmonology Routine Ordered Studies Chest X-Ray 10/17/23 10:57 XR chest 1V not portable CLINICAL HISTORY: Chest pain, nonspecific TECHNIQUE: Single frontal radiograph of the chest was obtained. Comparison: Comparison is made to chest radiograph 06/23/2021 FINDINGS: No lines and tubes are seen. The aorta is tortuous. The remainder of the cardiomediastinal silhouette is unremarkable. The lungs are clear. No evidence of pleural effusion or pneumothorax. IMPRESSION: No acute chest disease. ACT 112: Negative or not required by law. Electronically signed by: Ricky Chester M.D. 10/17/2023 1:19 PM Ribs w/Chest X-Ray 10/17/23 15:40 XR ribs RT min 2V w CXR1V HISTORY: 68 years-old Male ? Fx rib/pain acute right-sided rib pain status post fall COMPARISON: 10/17/2023 TECHNIQUE: PA view chest with 4 views of the right ribs FINDINGS: Cardiac silhouette is mildly enlarged. No pneumothorax, pleural effusion or airspace consolidation. Degenerative changes of the shoulders and spine. No acute displaced rib fracture identified. IMPRESSION: 1. No acute process of the chest. 2. No acute displaced rib fracture or pneumothorax identified. ACT 112: Negative or not required by law. The above report was generated using voice recognition software. It may contain grammatical, syntax or spelling errors. Electronically signed by: Gabino Judge M.D. 10/17/2023 4:38 PM Hospital Course (1) Reactive airway disease: Patient sent to ER at requst of outpatient [facility] pulm clinic for concerns undiagnosed eosinophilic asthma with acute exacerbation (notable did have elevated eosinophils initially but resolved on repeat testing x 1 to zero) Given IV dexamethasone 10mg and albuterol nebulizer treatment in ER, 1gm IV magnesium and cough syrup and pulmonary toilet CXR w/o acute pneumonia Repeat chest imaging w/ ribs reporting no acute finding but appears w/ slight nondisplaced tib fracture of R 10th/11th rib WBC elevation likely 2nd to steroids, afebrile Pulmonary consulted, changed IV steroids to prednisone 20mg PO BID and to complete 5 day course at discharge. Recommended pain control for rib fracture (sending on lidocaine/oxycodone as needed, incentive spirometer and encouraged to cough/deep breath -- he has had fracture in past and aware of such). TO repeat CT chest in 6 months, outpatient PFT testing and continue inhalers/nebulizers at home but stable from pulm standpoint for dischage and patient anxious for discharge TO return to ER with any worsened/increased pain or shortness of breath/fever and monitor for any symptoms of pneumonia. Close f/u PCP and pulm as discussed with patient (2) Chest pain: Reported acute onset while coughing (notable he reported splinting with signifi cant coughing on his couch and reports he thinks possible trauma leading to the fracture). Vit D acceptable Ddimer checked, NOT elevated at 340, low susp for PE Trop/EKG reassuring Suspect chest pain 2nd to rib fracture on the right -- pain control with topical lidocaine patch/PO oxycodone, incentive spirometer/pulmonary toilet at discharge and to continue cough/deep breathing w/ pillow splint No issues on telemetry F/u outpatient Return to ER with any worsening symptoms as above (3) Cough: 2nd to above medications as outlined (4) HTN (hypertension): Chronic, stable Plan discharged on PO prednisone, pain control. outpatient pulm follow up Total Time Total Time Spent Total Time Spent (In Minutes): 40 Discharge Plan Discharge Items Patient Disposition: Home - Self-Care Reason For Visit: ASTHMA EXCERBATION, RIGHT CHEST PAIN Discharge Diagnosis: Asthma Exacerbation Condition on Discharge: Good Goals: You have been hospitalized for an acute medical problem. During your stay at [facility], we have made an effort to correct the problem that brought you to the hospital while keeping you as comfortable as possible. Medications were used to bring your condition under control and your discharge instructions will include directions for any medications you should take after leaving the hospital. Please make sure you see your Primary Care Provider as part of your follow up plan. Activity: As commented below Non-emergency contact: Primary Care Provider and Manager Simulation Call non-emergency contact if: you have any medication questions, your symptoms worsen, your pain is concerning for you and you have a fever Follow-up/Referrals: Romario Rebolledo MD [Physician] - Yoselyn De Paz MD [Primary Care Provider] - Diet: Heart Healthy Addtl Attending Provider Instructions: You have been hospitalized for wheezing/asthma exacerbation and also found to have rib fracture ont he right. You were treated with IV steroids and consultation was undertaken with pulmonology, Dr Rebolledo, and you have been transitioned to oral prednisone 20mg by mouth twice daily for another 5 days at discharge. Please continue incentive spirometer to prevent any pneumonia with your rib fractures. We have sent in pain medication as well as lidocaine patches for pain control. As discussed, monitor for any constipation when on pain medication and can use over the counter stool softener/laxative if needed. You are to continue your nebulizers/inhalers at discharge and have follow up with pulmonology in the next 2-3 weeks and have repeat pulmonary function testing. You will need to have repeat CT scan of the chest in 6 months. You should follow up with primary care in the next 7-10 days to monitor your status after hospitalization. Please return to the ER with any fever/chills, chest pain, worsening shortness of breath or for any other symptoms concerning for you. Take care! It has been a pleasure being a part of the medical team providing for you while you have been in the hospital. Take care! Pending Studies at Discharge: No Stand-Alone Forms: My [facility], Pain - Opioid Pain Management Medications and DC Order Prescriptions: New oxycodone 5 mg Tablet 5 mg PO Q4H PRN (Reason: pain) Qty: 12 0RF prednisone 20 mg Tablet 20 mg PO BID 5 Days Qty: 10 0RF lidocaine 5 % Adhesive Patch,Medicated 1 patch transdermal QAM Qty: 15 0RF Continued paroxetine HCl [Paxil] 10 mg tablet 10 mg PO DAILY albuterol sulfate 90 mcg/actuation HFA aerosol inhaler 2 puff inhalation Q6H PRN (Reason: Wheezing) Anoro Ellipta 62.5-25 mcg/actuation blister with device 1 inh inhalation DAILY multivitamin Tablet 2 tab PO QAM Patient Comments: GUMMIES aspirin 81 mg Capsule 81 mg PO QAM omeprazole 20 mg Capsule,Delayed Release(Dr/Ec) 20 mg PO QAM Discharge Orders: Discharge Order (Routine); Ordered 10/18/23 Ordered By: Tanika Borges Admission Data Admit Date/Time: 10/17/23 15:25 Attending Provider: Dallas Kunz Admit Provider: Jose Andre Primary Care Provider: Yoselyn De Paz Other Providers: Jose Andre Gregory Other Interventions: Discharge Summary Assessment (RN) Last Done: 10/18/23 13:42 Supervising Physician Co-Signing Physician Notes The patient was not seen by me. The chart was reviewed. Case discussed with GURJIT Lara. Agree with assessment and plan. The patient is medically stable for discharge today, October 17 Coding Level of Care Code 56220 INP/OBS DISCH >30 MIN Diagnoses Reactive airway disease J45.909 Asthma complication type: uncomplicated Asthma persistence: unspecified Asthma severity: unspecified severity Chest pain R07.9 Cough R05.9 Cough type: unspecified HTN (hypertension) I10
[2023-10-18] MEDS ORDERED: guaiFENesin/CODEINE 100MG/10MG 5ML UDC PO PRN (14:00)
== END 2023-10-18 13:45 | disposition home or self-care (01) ==
LOC: ED 10:35 → EDINP 10:35 → SUATTDRO 15:25 → EDINP 16:56